=== PATIENT | female | born 1930 | race Caucasian/White ===

== ENCOUNTER 2018-08-08 15:37 | Inpatient (IN) | payer MEDICARE, MEDICAID ==
[2018-08-08 23:44] VITALS: BMI 22.8
[2018-08-09 06:35] LABS: HEMOGLOBIN 10.8 g/dL (12.0-16.0); MEAN CELL VOLUME 96.9 fl (81.0-99.0); MEAN CORPUSCULAR HEMOGLOBIN 32.6 pg (27.0-31.0); MEAN CORPUSCULAR HGB CONC 33.6 g/dL (33.0-37.0); RBC 3.31 Mil/uL (3.80-5.20); RED CELL DISTRIBUTION WIDTH 12.4 % (11.5-14.5); WHITE BLOOD COUNT 4.9 K/uL (4.8-10.8)
[2018-08-09 06:43] LABS: BLOOD UREA NITROGEN 13 mg/dl (7-17); CALCIUM 9.1 mg/dL (8.4-10.2); GFR NON-AFRICAN AMERICAN > 60
[2018-08-09] MEDS: Pantoprazole 40 mg EC Tab PO SCH (09:11)
[2018-08-09] MEDS: Multivitamin With Minerals Tab PO SCH (09:11)
[2018-08-09] MEDS: Enoxaparin 40 mg Syringe SC SCH (13:01)
[2018-08-09] MEDS: DORZOLAMIDE OU SCH (16:01)
[2018-08-09] MEDS: TIMOLOL OU SCH (16:01)
[2018-08-09] MEDS ORDERED: Potassium Chloride 20 mEq ER Tab PO ONE (18:05)
--- NOTE | 2018-08-09 18:10 | PCM.CPAPS ---
History of Present Illness - History of Present Illness History of Present Illness: Dr Parks PMR coverage for Dr. Wilcox on Crystal Weiss, born 1930 known to me from past stay at [facility] where I had seen her on 07/27/18 for [facility] following a CVA. Now coming to acute rehab following CVA. Review of Systems - Constitutional Constitutional: absent: Anorexia, Chills - EENT Eyes: Loss of Vision (long standing) Ears: absent: Ear Discharge, Ear Pain Nose/Mouth/Throat: absent: Nasal Congestion, Nasal Discharge - Cardiovascular Cardiovascular: absent: Chest Pain - Respiratory Respiratory: absent: Cough, Dyspnea - Gastrointestinal Gastrointestinal: absent: Abdominal Pain - Musculoskeletal Musculoskeletal: absent: Back Pain - Integumentary Integumentary: absent: Bleeding Lesions - Neurological Neurological: absent: Abnormal Movements, Numbness 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) Hx Cataracts: (right eye cataract surgery-) - RENAL Hx Chronic Kidney Disease: No - ENDOCRINE/METABOLIC Hx Endocrine Disorders: No - HEMATOLOGICAL/ONCOLOGICAL Hx AIDS: No Hx Human Immunodeficiency Virus (HIV): No - INTEGUMENTARY Hx Dermatological Problems: No - MUSCULOSKELETAL/RHEUMATOLOGICAL Hx Falls: Yes (4 months ago per granddaughter) Other/Comment: hx back pain - GASTROINTESTINAL Hx Gastrointestinal Disorders: Yes Hx Bowel Surgery: (colon resection-2011) Other/Comment: HX Colon Cancer - GENITOURINARY/GYNECOLOGICAL Hx Genitourinary Disorders: No - PSYCHIATRIC Hx Psychophysiologic Disorder: No Hx Anxiety: Yes - SURGICAL HISTORY Hx Surgeries: Yes Hx Amputation: Yes (LEFT INDEX FINGER FROM ACCIDENT AT WORK) Hx Cataract Extraction: Yes Hx Eye Surgery: (Yes-cataract surgery right eye) Hx Orthopedic Surgery: Yes (right TKR-2006) - ANESTHESIA Hx Anesthesia: Yes Hx Anesthesia Reactions: No Hx Malignant Hyperthermia: No Meds Allergies/Adverse Reactions: Allergies Allergy/AdvReac Type Severity Reaction Status Date / Time No Known Allergies Allergy Verified 08/09/18 00:02 - Medications Medications: Current Medications Acetaminophen (Tylenol 325mg Tab) 650 mg PO Q6 PRN PRN Reason: Headache Alprazolam (Xanax) 0.25 mg PO DAILY PRN PRN Reason: for anxiety Stop: 08/16/18 09:01 Aspirin (Ecotrin) 81 mg PO DAILY [facility] Last Admin: 08/09/18 09:10 Dose: 81 mg Atorvastatin Calcium (Lipitor) 20 mg PO HS [facility] Enoxaparin Sodium (Lovenox) 40 mg SC DAILY [facility]; Protocol Last Admin: 08/09/18 13:01 Dose: 40 mg Home Med (Patient's Own Medication) 1 unit OU BID [facility] Last Admin: 08/09/18 16:01 Dose: 1 unit Home Med (Patient's Own Medication) 1 unit OU HS [facility] Metoprolol Tartrate (Lopressor) 50 mg PO Q12 [facility] Last Admin: 08/09/18 09:11 Dose: 50 mg Multivitamins/Minerals (Therapeutic-M Tab) 1 tab PO DAILY [facility] Last Admin: 08/09/18 09:11 Dose: 1 tab Pantoprazole Sodium (Protonix Ec Tab) 40 mg PO DAILY [facility] Last Admin: 08/09/18 09:11 Dose: 40 mg Thiamine HCl (Vitamin B1 Tab) 100 mg PO DAILY [facility] Last Admin: 08/09/18 09:11 Dose: 100 mg Physical Exam - Constitutional Appears: Non-toxic - Respiratory Exam Respiratory Exam: NORMAL BREATHING PATTERN - Cardiovascular Exam Cardiovascular Exam: REGULAR RHYTHM - GI/Abdominal Exam GI & Abdominal Exam: Normal Bowel Sounds. absent: Firm - Extremities Exam Extremities exam: Negative for: calf tenderness - Neurological Exam Neurological exam: Alert - Psychiatric Exam Psychiatric exam: Normal Affect, Normal Mood - Skin Skin Exam: Warm Results - Vital Signs Recent Vital Signs: Last Vital Signs Temp 97.9 F 08/09/18 10:00 Pulse 67 08/09/18 10:00 Resp 18 08/09/18 10:00 BP 152/72 H 08/09/18 10:00 Pulse Ox 96 08/09/18 10:00 - Labs Result Diagrams: 08/09/18 05:20 08/09/18 05:20 Labs: Laboratory Results - last 24 hr 08/09/18 08/09/18 05:20 05:20 WBC 4.9 RBC 3.31 L Hgb 10.8 L Hct 32.1 L MCV 96.9 MCH 32.6 H MCHC 33.6 RDW 12.4 Plt Count 200 Sodium 142 Potassium 3.3 L Chloride 107 Carbon Dioxide 28 Anion Gap 10 BUN 13 Creatinine 0.8 Est GFR ( Amer) > 60 Est GFR (Non-Af Amer) > 60 Random Glucose 92 Calcium 9.1 Assessment & Plan - Assessment and Plan (Free Text) Assessment: Crystal Weiss, born 1930 [facility] weakness and CVA with minimal residual. Patient lives with son and had been fairly independent. C/O L>Rknee pain. 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 Medical History: As above HTN Colon CA 2012 HLD PT/OT to continue to help increase functional independence Team conference for d/c planning Pain: controlled, but if necessary can perform injections Vascular: no evidence of DVT GI: No evidence of constipation or diarrhea Patient is an excellent acute rehabilitation candidate and will have focused pain management,speech therapy, PT, OT and recreational therapy to help facilitate a safe and appropriate d/c plan - Functional Status Prior to Admission: ambulating around independently Current Status: Needs CS/CGA with ambulation and ADLs Impairment Code: 01.2
--- NOTE | 2018-08-09 18:18 | PCM.OPOC ---
Physiatry Overall Plan of Care - Overall Plan of Care Estimated Length of Stay in Weeks: 3 Rehab Impairment: Mobility, Gait, Cognition, Speech, Balance, Coordination Etiologic Diagnosis: Cerebrovascular Accident Rehab/Medical Prognosis: Fair - Anticipated Interventions Physical Therapy:: Yes Number of Hours: 1.5 Number of times per week: 6 Number of Week(s) Duration: 3 Occupational Therapy:: Yes Number of Hours: 1.5 Number of times per week: 6 Number of Week(s) Duration: 3 Speech Therapy:: Yes Number of Hours: 1 Number of times per week: 5 Number of Week(s) Duration: 3 Recreational Therapy:: Yes Number of Hours: 3 Number of times per week: 5 Number of Week(s) Duration: 3 - Therapy Goals Bed Mobility: Supervision Ambulation: Supervision Functional Positional Changes:: Supervision - Functional Status Prior to Admission: independent Current Status: CG/CS - Functional Outcomes Functional Outcomes: to be assessed - Discharge Plan Identification of Barriers to Discharge: Cognition Discharge Destination: Home
[2018-08-09] MEDS: TRAVATAN Z OU SCH (21:25)
--- NOTE | 2018-08-10 03:31 | HP ---
HISTORY OF PRESENT ILLNESS: This is an 88-year-old female with history of multiple medical problems, was admitted to subacute rehabilitation after an acute care admission at [facility] for CVA. As per son, who was at the bedside at the time of this evaluation, he mentioned that the patient went to [facility] about 10 days ago because of slurred speech. The patient was evaluated and she was found to have an acute CVA. The patient had previous CVAs, and she had minimal residual motor weakness. REVIEW OF SYSTEMS: Currently, the patient is not offering any complaint except some knee pain bilaterally, otherwise review of system is negative. ALLERGIES: NO KNOWN ALLERGY. MEDICATIONS: As per MAR, reviewed and ordered. SOCIAL HISTORY: No history of smoking, EtOH or substance abuse. FAMILY HISTORY: Noncontributory. PHYSICAL EXAMINATION: GENERAL: The patient is in bed, not in any cardiopulmonary distress. VITAL SIGNS: Blood pressure 152/72, temperature 97.9, respiratory rate 18 and pulse 67. HEENT: Pupils equal, reactive to light. Normal-appearing mucosa of the conjunctivae, oropharynx and nasal membrane mucosa. NECK: Supple. No JVD. No carotid bruit. No lymph node. No thyromegaly. CHEST AND LUNGS: Bilateral symmetrical expansion. Good air exchange. No rales, no rhonchi. CARDIOVASCULAR SYSTEM: PMI not localized. S1, S2. No additional sounds. ABDOMEN: Normoactive bowel sounds. No tenderness. No organomegaly. No masses. EXTREMITIES: No cyanosis, no clubbing, no edema. 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 ASSESSMENT: 1. Cerebrovascular accident with slurred speech/aphasia. 2. Hypertension. 3. Hypercholesterolemia. 4. History of colon cancer. PLAN: Physical therapy. Resume the patient's medications and occupational therapy. Will do blood work also. Andrea Lopez MD
[2018-08-10] MEDS: Pantoprazole 40 mg EC Tab PO SCH (08:40)
[2018-08-10] MEDS: DORZOLAMIDE OU SCH ×2 (08:40→17:40)
[2018-08-10] MEDS: TIMOLOL OU SCH ×2 (08:40→17:40)
[2018-08-10] MEDS: Enoxaparin 40 mg Syringe SC SCH (08:41)
[2018-08-10] MEDS: Multivitamin With Minerals Tab PO SCH (08:41)
--- NOTE | 2018-08-10 15:48 | CP.PCM.PN ---
Subjective - Date & Time of Evaluation Date of Evaluation: 08/10/18 Time of Evaluation: 15:47 - Subjective Subjective: Patient seen in therapy denies pain or sob at this time afebrile working well with the therapist continue current care Objective - Vital Signs/Intake and Output Vital Signs (last 24 hours): Temp Pulse Resp BP Pulse Ox 98.1 F 72 18 144/72 100 08/10/18 10:00 08/10/18 10:00 08/10/18 10:00 08/10/18 10:00 08/10/18 10:00 - Medications Medications: Current Medications Acetaminophen (Tylenol 325mg Tab) 650 mg PO Q6 PRN PRN Reason: Headache Last Admin: 08/10/18 06:34 Dose: 650 mg Alprazolam (Xanax) 0.25 mg PO DAILY PRN PRN Reason: for anxiety Stop: 08/16/18 09:01 Aspirin (Ecotrin) 81 mg PO DAILY [facility] Last Admin: 08/10/18 08:41 Dose: 81 mg Atorvastatin Calcium (Lipitor) 20 mg PO HS [facility] Last Admin: 08/09/18 21:16 Dose: 20 mg Enoxaparin Sodium (Lovenox) 40 mg SC DAILY [facility]; Protocol Last Admin: 08/10/18 08:41 Dose: 40 mg Home Med (Patient's Own Medication) 1 unit OU BID [facility] Last Admin: 08/10/18 08:40 Dose: 1 unit Home Med (Patient's Own Medication) 1 unit OU HS [facility] Last Admin: 08/09/18 21:25 Dose: 1 unit Metoprolol Tartrate (Lopressor) 50 mg PO Q12 [facility] Last Admin: 08/10/18 08:40 Dose: 50 mg Multivitamins/Minerals (Therapeutic-M Tab) 1 tab PO DAILY [facility] Last Admin: 08/10/18 08:41 Dose: 1 tab Pantoprazole Sodium (Protonix Ec Tab) 40 mg PO DAILY [facility] Last Admin: 08/10/18 08:40 Dose: 40 mg Thiamine HCl (Vitamin B1 Tab) 100 mg PO DAILY [facility] Last Admin: 08/10/18 08:40 Dose: 100 mg - Labs Labs: 08/09/18 05:20 08/09/18 05:20
--- NOTE | 2018-08-10 18:43 | CP.PCM.CON ---
History of Present Illness - History of Present Illness History of Present Illness: Podiatry Consult Note: Dr. Santiago 88 year old female patient, seen and evaluated in rehab for elongated painful nails. Patient was admitted for CVA. Patient states that her nails cause pain in her shoes and that she is unable to cut them herself. She denies nausea/vomiting/fever. 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) Hx Cataracts: (right eye cataract surgery-) - RENAL Hx Chronic Kidney Disease: No - ENDOCRINE/METABOLIC Hx Endocrine Disorders: No - HEMATOLOGICAL/ONCOLOGICAL Hx AIDS: No Hx Human Immunodeficiency Virus (HIV): No - INTEGUMENTARY Hx Dermatological Problems: No - MUSCULOSKELETAL/RHEUMATOLOGICAL Hx Falls: Yes (4 months ago per granddaughter) Other/Comment: hx back pain - GASTROINTESTINAL Hx Gastrointestinal Disorders: Yes Hx Bowel Surgery: (colon resection-2011) Other/Comment: HX Colon Cancer - GENITOURINARY/GYNECOLOGICAL Hx Genitourinary Disorders: No - PSYCHIATRIC Hx Psychophysiologic Disorder: No Hx Anxiety: Yes - SURGICAL HISTORY Hx Surgeries: Yes Hx Amputation: Yes (LEFT INDEX FINGER FROM ACCIDENT AT WORK) Hx Cataract Extraction: Yes Hx Eye Surgery: (Yes-cataract surgery right eye) Hx Orthopedic Surgery: Yes (right TKR-2006) - ANESTHESIA Hx Anesthesia: Yes Hx Anesthesia Reactions: No Hx Malignant Hyperthermia: No Meds Allergies/Adverse Reactions: Allergies Allergy/AdvReac Type Severity Reaction Status Date / Time No Known Allergies Allergy Verified 08/09/18 00:02 - Medications Medications: Current Medications Acetaminophen (Tylenol 325mg Tab) 650 mg PO Q6 PRN PRN Reason: Headache Last Admin: 08/10/18 06:34 Dose: 650 mg Alprazolam (Xanax) 0.25 mg PO DAILY PRN PRN Reason: for anxiety Stop: 08/16/18 09:01 Aspirin (Ecotrin) 81 mg PO DAILY [facility] Last Admin: 08/10/18 08:41 Dose: 81 mg Atorvastatin Calcium (Lipitor) 20 mg PO HS [facility] Last Admin: 08/09/18 21:16 Dose: 20 mg Enoxaparin Sodium (Lovenox) 40 mg SC DAILY [facility]; Protocol Last Admin: 08/10/18 08:41 Dose: 40 mg Home Med (Patient's Own Medication) 1 unit OU BID [facility] Last Admin: 08/10/18 17:40 Dose: 1 unit Home Med (Patient's Own Medication) 1 unit OU HS [facility] Last Admin: 08/09/18 21:25 Dose: 1 unit Metoprolol Tartrate (Lopressor) 50 mg PO Q12 [facility] Last Admin: 08/10/18 08:40 Dose: 50 mg Multivitamins/Minerals (Therapeutic-M Tab) 1 tab PO DAILY [facility] Last Admin: 08/10/18 08:41 Dose: 1 tab Pantoprazole Sodium (Protonix Ec Tab) 40 mg PO DAILY [facility] Last Admin: 08/10/18 08:40 Dose: 40 mg Thiamine HCl (Vitamin B1 Tab) 100 mg PO DAILY [facility] Last Admin: 08/10/18 08:40 Dose: 100 mg Physical Exam - Constitutional Appears: Non-toxic, No Acute Distress - Head Exam Head Exam: ATRAUMATIC, NORMOCEPHALIC - Extremities Exam Additional comments: Vascular: DP/PT 1/4, CFT < 3 seconds, TG warm to warm, no edema present to b/l lower extremities Ortho: Tenderness with palpation of b/l nails Neuro: Gross sensation intact, unable to assess protective sensation at this time Derm: Elongated, dystrophic nails. No open lesions, no erythema, no clinical signs of infection Results - Vital Signs Recent Vital Signs: Last Vital Signs Temp 98.1 F 08/10/18 10:00 Pulse 72 08/10/18 10:00 Resp 18 08/10/18 10:00 BP 144/72 08/10/18 10:00 Pulse Ox 100 08/10/18 10:00 - Labs Result Diagrams: 08/12/18 06:15 08/14/18 05:45 Assessment & Plan - Assessment and Plan (Free Text) Assessment: 88 year old female patient with elongated, painful dystrophic nails. Plan: Patient seen and evaluated with all questions and concerns addressed Discussed with Dr. Santiago Nails debrided with a large nail nipper x10 without incident Podiatry to sign off at this time, please reconsult as needed Thank you for the consult - Date & Time Date: 08/10/18 Time: 18:43
[2018-08-10] MEDS: TRAVATAN Z OU SCH (21:04)
[2018-08-11 06:19] LABS: BLOOD UREA NITROGEN 11 mg/dl (7-17); CALCIUM 9.3 mg/dL (8.4-10.2); GFR NON-AFRICAN AMERICAN > 60
[2018-08-11] MEDS: Enoxaparin 40 mg Syringe SC SCH (08:46)
[2018-08-11] MEDS: Multivitamin With Minerals Tab PO SCH (08:46)
[2018-08-11] MEDS: DORZOLAMIDE OU SCH ×2 (08:46→17:25)
[2018-08-11] MEDS: TIMOLOL OU SCH ×2 (08:46→17:25)
[2018-08-11] MEDS: Pantoprazole 40 mg EC Tab PO SCH (08:47)
[2018-08-11] MEDS: TRAVATAN Z OU SCH (21:38)
--- NOTE | 2018-08-12 02:36 | PN ---
DATE: 08/10/2018 SUBJECTIVE: The patient was seen on 08/10/2018. She was not in any cardiopulmonary distress. PHYSICAL EXAMINATION: VITAL SIGNS: Blood pressure 144/72, temperature 98.1, respiratory rate 18 and pulse 72. HEENT: Normal-appearing mucosa of the conjunctivae. NECK: Supple. No JVD. No carotid bruit. No lymph node. No thyromegaly. CHEST AND LUNGS: Bilateral symmetrical expansion. Good air exchange. No rales, no rhonchi. CARDIOVASCULAR SYSTEM: PMI not localized. S1, S2. No additional sounds. ABDOMEN: Normoactive bowel sounds. No tenderness. No organomegaly. No masses. EXTREMITIES: No cyanosis, no clubbing, no edema. CENTRAL NERVOUS SYSTEM: The patient is awake but she is oriented to person, disoriented to time and place, and moves all extremities equally. ASSESSMENT: 1. Cerebrovascular accident with aphasia. 2. Hypertension. 3. Hypercholesterolemia. 4. Atherosclerotic cardiovascular disease. PLAN: Continue physical therapy and occupational therapy. Continue current medications and supplement potassium as the patient's potassium was 3.3. Jason MD John
[2018-08-12 07:42] LABS: HEMOGLOBIN 11.1 g/dL (12.0-16.0); MEAN CELL VOLUME 95.3 fl (81.0-99.0); MEAN CORPUSCULAR HEMOGLOBIN 32.6 pg (27.0-31.0); MEAN CORPUSCULAR HGB CONC 34.2 g/dL (33.0-37.0); RBC 3.4 Mil/uL (3.80-5.20); RED CELL DISTRIBUTION WIDTH 12.3 % (11.5-14.5); WHITE BLOOD COUNT 4.4 K/uL (4.8-10.8)
[2018-08-12 08:21] LABS: BLOOD UREA NITROGEN 10 mg/dl (7-17); GFR NON-AFRICAN AMERICAN > 60
[2018-08-12] MEDS: Atropine-Diphenoxylate 0.025-2.5 mg Tab PO SCH ×2 (08:56→16:46)
[2018-08-12] MEDS: Multivitamin With Minerals Tab PO SCH (08:57)
[2018-08-12] MEDS: Pantoprazole 40 mg EC Tab PO SCH (08:57)
[2018-08-12] MEDS: Enoxaparin 40 mg Syringe SC SCH (08:57)
[2018-08-12] MEDS: TIMOLOL OU SCH ×2 (08:57→16:47)
[2018-08-12] MEDS: DORZOLAMIDE OU SCH ×2 (08:57→16:47)
[2018-08-12] MEDS: TRAVATAN Z OU SCH (21:01)
[2018-08-13] MEDS: Atropine-Diphenoxylate 0.025-2.5 mg Tab PO SCH (08:50)
[2018-08-13] MEDS: Enoxaparin 40 mg Syringe SC SCH (08:50)
[2018-08-13] MEDS: Pantoprazole 40 mg EC Tab PO SCH (08:51)
[2018-08-13] MEDS: DORZOLAMIDE OU SCH ×2 (08:51→17:02)
[2018-08-13] MEDS: TIMOLOL OU SCH ×2 (08:51→17:02)
[2018-08-13] MEDS: Multivitamin With Minerals Tab PO SCH (08:53)
[2018-08-13] MEDS ORDERED: Magnesium Oxide 400 mg Tab UD PO SCH (17:00)
[2018-08-13] MEDS: Potassium Chloride 20 mEq ER Tab PO SCH (17:01)
[2018-08-13] MEDS: Cholestyramine 4 gm/Pkt UD PO SCH (17:01)
--- NOTE | 2018-08-13 20:28 | PN ---
DATE: 08/13/2018 SUBJECTIVE: The patient is seen today. She is not in any cardiopulmonary distress. Potassium is low. PHYSICAL EXAMINATION: VITAL SIGNS: Blood pressure 141/71, temperature 98.1, respiratory rate 18 and pulse 68. HEENT: Pupils equal, reactive to light. Normal appearing mucosa of the conjunctivae, oropharynx and nasal membrane mucosa. NECK: Supple. No JVD. No carotid bruit. No lymph node. No thyromegaly. CHEST AND LUNGS: Bilateral symmetrical expansion. Good air exchange. No rales, no rhonchi. CARDIOVASCULAR SYSTEM: PMI not localized. S1, S2. No additional sounds. ABDOMEN: Normoactive bowel sounds. No tenderness. No organomegaly. No masses. EXTREMITIES: No cyanosis, no clubbing, no edema. 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 ASSESSMENT: 1. Cardiovascular accident with aphasia. 2. Chronic diarrhea status post partial colectomy for cancer of colon. 3. Hypokalemia. PLAN: We will supplement potassium. We will check the magnesium level and supplement magnesium as needed. Andrea Lopez MD
[2018-08-13] MEDS: TRAVATAN Z OU SCH (21:07)
[2018-08-14 06:08] LABS: ALB/GLOB RATIO 1.3 (1.0-2.1); ALBUMIN 3.3 g/dL (3.5-5.0); ALT/SGPT 33 U/L (9-52); AST/SGOT 19 U/L (14-36); BLOOD UREA NITROGEN 16 mg/dl (7-17); CALCIUM 8.8 mg/dL (8.4-10.2); GFR NON-AFRICAN AMERICAN > 60
[2018-08-14] MEDS: Enoxaparin 40 mg Syringe SC SCH (08:07)
[2018-08-14] MEDS: Multivitamin With Minerals Tab PO SCH (08:08)
[2018-08-14] MEDS: Potassium Chloride 20 mEq ER Tab PO SCH (08:08)
[2018-08-14] MEDS: DORZOLAMIDE OU SCH ×2 (08:09→16:25)
[2018-08-14] MEDS: Pantoprazole 40 mg EC Tab PO SCH (08:09)
[2018-08-14] MEDS: TIMOLOL OU SCH ×2 (08:09→16:25)
[2018-08-14] MEDS: Cholestyramine 4 gm/Pkt UD PO SCH (08:09)
[2018-08-14] MEDS: Atropine-Diphenoxylate 0.025-2.5 mg Tab PO PRN (09:01)
--- NOTE | 2018-08-14 19:21 | CP.PCM.PN ---
Subjective - Date & Time of Evaluation Date of Evaluation: 08/14/18 Time of Evaluation: 13:00 - Subjective Subjective: patent is alert, problems with vision, no acute complaints Objective - Vital Signs/Intake and Output Vital Signs (last 24 hours): Temp Pulse Resp BP Pulse Ox 97.2 F L 77 20 149/68 99 08/14/18 10:00 08/14/18 10:00 08/14/18 10:00 08/14/18 10:00 08/14/18 10:00 - Medications Medications: Current Medications Acetaminophen (Tylenol 325mg Tab) 650 mg PO Q6 PRN PRN Reason: Headache Last Admin: 08/13/18 23:13 Dose: 650 mg Alprazolam (Xanax) 0.25 mg PO DAILY PRN PRN Reason: for anxiety Stop: 08/16/18 09:01 Aspirin (Ecotrin) 81 mg PO DAILY [facility] Last Admin: 08/14/18 08:10 Dose: 81 mg Atorvastatin Calcium (Lipitor) 20 mg PO HS [facility] Last Admin: 08/13/18 21:07 Dose: 20 mg Cholestyramine Resin (Questran) 4 gm PO DAILY [facility] Last Admin: 08/14/18 08:09 Dose: 4 gm Diphenoxylate HCl/Atropine (Lomotil 0.025-2.5 Mg Tablet) 1 tab PO BID PRN PRN Reason: Diarrhea Last Admin: 08/14/18 09:01 Dose: 1 tab Enoxaparin Sodium (Lovenox) 40 mg SC DAILY [facility]; Protocol Last Admin: 08/14/18 08:07 Dose: 40 mg Home Med (Patient's Own Medication) 1 unit OU BID [facility] Last Admin: 08/14/18 16:25 Dose: 1 unit Home Med (Patient's Own Medication) 1 unit OU HS [facility] Last Admin: 08/13/18 21:07 Dose: 1 unit Metoprolol Tartrate (Lopressor) 50 mg PO Q12 [facility] Last Admin: 08/14/18 08:08 Dose: 50 mg Multivitamins/Minerals (Therapeutic-M Tab) 1 tab PO DAILY [facility] Last Admin: 08/14/18 08:08 Dose: 1 tab Pantoprazole Sodium (Protonix Ec Tab) 40 mg PO DAILY [facility] Last Admin: 08/14/18 08:09 Dose: 40 mg Potassium Chloride (K-Dur 20 Meq Er Tab) 20 meq PO DAILY [facility] Last Admin: 08/14/18 08:08 Dose: 20 meq Thiamine HCl (Vitamin B1 Tab) 100 mg PO DAILY [facility] Last Admin: 08/14/18 08:09 Dose: 100 mg - Labs Labs: 08/12/18 06:15 08/14/18 05:45 - Constitutional Appears: Well - Head Exam Head Exam: ATRAUMATIC, NORMAL INSPECTION, NORMOCEPHALIC - Eye Exam Eye Exam: EOMI, Normal appearance Pupil Exam: NORMAL ACCOMODATION, PERRL - ENT Exam ENT Exam: Mucous Membranes Moist, Normal Exam - Neck Exam Neck Exam: Full ROM, Normal Inspection - Respiratory Exam Respiratory Exam: Clear to Ausculation Bilateral, NORMAL BREATHING PATTERN - Cardiovascular Exam Cardiovascular Exam: REGULAR RHYTHM - GI/Abdominal Exam GI & Abdominal Exam: Soft, Normal Bowel Sounds - Rectal Exam Rectal Exam: NORMAL INSPECTION - Exam External exam: NORMAL EXTERNAL EXAM - Extremities Exam Extremities Exam: Full ROM, Normal Capillary Refill, Normal Inspection - Back Exam Back Exam: NORMAL INSPECTION - Neurological Exam Neurological Exam: Alert, Awake Neuro motor strength exam: Left Upper Extremity: 3, Right Upper Extremity: 3, Left Lower Extremity: 3, Right Lower Extremity: 3 - Psychiatric Exam Psychiatric exam: Normal Affect - Skin Skin Exam: Dry, Normal Color Assessment and Plan (1) CVA (cerebral vascular accident) Assessment & Plan: plan for physical, occupational, rec and speech eval. for team conference Status: Acute
--- NOTE | 2018-08-14 19:27 | CP.PCM.PN ---
Subjective - Date & Time of Evaluation Date of Evaluation: 08/13/18 Time of Evaluation: 18:00 - Subjective Subjective: no acute complaints at present Objective - Vital Signs/Intake and Output Vital Signs (last 24 hours): Temp Pulse Resp BP Pulse Ox 97.2 F L 77 20 149/68 99 08/14/18 10:00 08/14/18 10:00 08/14/18 10:00 08/14/18 10:00 08/14/18 10:00 - Medications Medications: Current Medications Acetaminophen (Tylenol 325mg Tab) 650 mg PO Q6 PRN PRN Reason: Headache Last Admin: 08/13/18 23:13 Dose: 650 mg Alprazolam (Xanax) 0.25 mg PO DAILY PRN PRN Reason: for anxiety Stop: 08/16/18 09:01 Aspirin (Ecotrin) 81 mg PO DAILY [facility] Last Admin: 08/14/18 08:10 Dose: 81 mg Atorvastatin Calcium (Lipitor) 20 mg PO HS [facility] Last Admin: 08/13/18 21:07 Dose: 20 mg Cholestyramine Resin (Questran) 4 gm PO DAILY [facility] Last Admin: 08/14/18 08:09 Dose: 4 gm Diphenoxylate HCl/Atropine (Lomotil 0.025-2.5 Mg Tablet) 1 tab PO BID PRN PRN Reason: Diarrhea Last Admin: 08/14/18 09:01 Dose: 1 tab Enoxaparin Sodium (Lovenox) 40 mg SC DAILY [facility]; Protocol Last Admin: 08/14/18 08:07 Dose: 40 mg Home Med (Patient's Own Medication) 1 unit OU BID [facility] Last Admin: 08/14/18 16:25 Dose: 1 unit Home Med (Patient's Own Medication) 1 unit OU HS [facility] Last Admin: 08/13/18 21:07 Dose: 1 unit Metoprolol Tartrate (Lopressor) 50 mg PO Q12 [facility] Last Admin: 08/14/18 08:08 Dose: 50 mg Multivitamins/Minerals (Therapeutic-M Tab) 1 tab PO DAILY [facility] Last Admin: 08/14/18 08:08 Dose: 1 tab Pantoprazole Sodium (Protonix Ec Tab) 40 mg PO DAILY [facility] Last Admin: 08/14/18 08:09 Dose: 40 mg Potassium Chloride (K-Dur 20 Meq Er Tab) 20 meq PO DAILY [facility] Last Admin: 08/14/18 08:08 Dose: 20 meq Thiamine HCl (Vitamin B1 Tab) 100 mg PO DAILY [facility] Last Admin: 08/14/18 08:09 Dose: 100 mg - Labs Labs: 08/12/18 06:15 08/14/18 05:45 - Constitutional Appears: Well - Head Exam Head Exam: ATRAUMATIC, NORMAL INSPECTION, NORMOCEPHALIC - Eye Exam Eye Exam: Normal appearance - ENT Exam ENT Exam: Mucous Membranes Moist - Neck Exam Neck Exam: Full ROM, Normal Inspection - Respiratory Exam Respiratory Exam: Clear to Ausculation Bilateral, NORMAL BREATHING PATTERN - Cardiovascular Exam Cardiovascular Exam: REGULAR RHYTHM - GI/Abdominal Exam GI & Abdominal Exam: Soft, Normal Bowel Sounds - Rectal Exam Rectal Exam: NORMAL INSPECTION - Exam External exam: NORMAL EXTERNAL EXAM - Extremities Exam Extremities Exam: Full ROM, Normal Capillary Refill - Back Exam Back Exam: NORMAL INSPECTION - Neurological Exam Neurological Exam: Alert Neuro motor strength exam: Left Upper Extremity: 3, Right Upper Extremity: 3, Left Lower Extremity: 3, Right Lower Extremity: 3 - Psychiatric Exam Psychiatric exam: Normal Mood - Skin Skin Exam: Normal Color Assessment and Plan (1) CVA (cerebral vascular accident) Assessment & Plan: plan for range of motion, strengthening , transfers and gait training, adl eval and equipment evaluation Status: Acute
[2018-08-14] MEDS: TRAVATAN Z OU SCH (21:16)
[2018-08-15 06:47] LABS: BLOOD UREA NITROGEN 18 mg/dl (7-17); GFR NON-AFRICAN AMERICAN > 60
[2018-08-15 07:08] LABS: HEMOGLOBIN 11.1 g/dL (12.0-16.0); MEAN CELL VOLUME 98.1 fl (81.0-99.0); MEAN CORPUSCULAR HEMOGLOBIN 32.1 pg (27.0-31.0); MEAN CORPUSCULAR HGB CONC 32.7 g/dL (33.0-37.0); RBC 3.47 Mil/uL (3.80-5.20); RED CELL DISTRIBUTION WIDTH 12.3 % (11.5-14.5); WHITE BLOOD COUNT 3.8 K/uL (4.8-10.8)
[2018-08-15] MEDS: Enoxaparin 40 mg Syringe SC SCH (08:46)
[2018-08-15] MEDS: Cholestyramine 4 gm/Pkt UD PO SCH (08:47)
[2018-08-15] MEDS: Potassium Chloride 20 mEq ER Tab PO SCH (08:47)
[2018-08-15] MEDS: Multivitamin With Minerals Tab PO SCH (08:47)
[2018-08-15] MEDS: Pantoprazole 40 mg EC Tab PO SCH (08:47)
[2018-08-15] MEDS: TIMOLOL OU SCH ×2 (08:49→17:00)
[2018-08-15] MEDS: DORZOLAMIDE OU SCH ×2 (08:49→17:00)
--- NOTE | 2018-08-15 11:29 | CP.PCM.PN ---
Subjective - Date & Time of Evaluation Date of Evaluation: 08/15/18 Time of Evaluation: 09:00 - Subjective Subjective: no acute neck or back pain Objective - Vital Signs/Intake and Output Vital Signs (last 24 hours): Temp Pulse Resp BP Pulse Ox 97.9 F 71 19 146/62 97 08/15/18 07:58 08/15/18 08:47 08/15/18 07:58 08/15/18 08:47 08/15/18 07:58 - Medications Medications: Current Medications Acetaminophen (Tylenol 325mg Tab) 650 mg PO Q6 PRN PRN Reason: Headache Last Admin: 08/15/18 05:39 Dose: 650 mg Alprazolam (Xanax) 0.25 mg PO DAILY PRN PRN Reason: for anxiety Stop: 08/16/18 09:01 Aspirin (Ecotrin) 81 mg PO DAILY [facility] Last Admin: 08/15/18 08:48 Dose: 81 mg Atorvastatin Calcium (Lipitor) 20 mg PO HS [facility] Last Admin: 08/14/18 21:15 Dose: 20 mg Cholestyramine Resin (Questran) 4 gm PO DAILY [facility] Last Admin: 08/15/18 08:47 Dose: 4 gm Diphenoxylate HCl/Atropine (Lomotil 0.025-2.5 Mg Tablet) 1 tab PO BID PRN PRN Reason: Diarrhea Last Admin: 08/14/18 09:01 Dose: 1 tab Enoxaparin Sodium (Lovenox) 40 mg SC DAILY [facility]; Protocol Last Admin: 08/15/18 08:46 Dose: 40 mg Home Med (Patient's Own Medication) 1 unit OU BID [facility] Last Admin: 08/15/18 08:49 Dose: 1 unit Home Med (Patient's Own Medication) 1 unit OU HS [facility] Last Admin: 08/14/18 21:16 Dose: 1 unit Metoprolol Tartrate (Lopressor) 50 mg PO Q12 [facility] Last Admin: 08/15/18 08:47 Dose: 50 mg Multivitamins/Minerals (Therapeutic-M Tab) 1 tab PO DAILY [facility] Last Admin: 08/15/18 08:47 Dose: 1 tab Pantoprazole Sodium (Protonix Ec Tab) 40 mg PO DAILY [facility] Last Admin: 08/15/18 08:47 Dose: 40 mg Potassium Chloride (K-Dur 20 Meq Er Tab) 20 meq PO DAILY [facility] Last Admin: 08/15/18 08:47 Dose: 20 meq Thiamine HCl (Vitamin B1 Tab) 100 mg PO DAILY [facility] Last Admin: 08/15/18 08:47 Dose: 100 mg Tobramycin/Dexamethasone (Tobradex Opht Susp) 1 drop OS Q4 [facility] Stop: 08/22/18 12:01 - Labs Labs: 08/15/18 05:20 08/15/18 05:20 - Constitutional Appears: Well - Head Exam Head Exam: ATRAUMATIC, NORMAL INSPECTION, NORMOCEPHALIC - Eye Exam Eye Exam: EOMI, Normal appearance, PERRL Pupil Exam: NORMAL ACCOMODATION - ENT Exam ENT Exam: Mucous Membranes Moist, Normal Exam - Neck Exam Neck Exam: Full ROM, Normal Inspection - Respiratory Exam Respiratory Exam: Clear to Ausculation Bilateral, NORMAL BREATHING PATTERN - Cardiovascular Exam Cardiovascular Exam: REGULAR RHYTHM - GI/Abdominal Exam GI & Abdominal Exam: Soft, Normal Bowel Sounds - Rectal Exam Rectal Exam: NORMAL INSPECTION - Exam External exam: NORMAL EXTERNAL EXAM - Extremities Exam Extremities Exam: Full ROM, Normal Capillary Refill, Normal Inspection - Back Exam Back Exam: NORMAL INSPECTION - Neurological Exam Neurological Exam: Alert, Awake Neuro motor strength exam: Left Upper Extremity: 3, Right Upper Extremity: 3, Left Lower Extremity: 3, Right Lower Extremity: 3 - Psychiatric Exam Psychiatric exam: Normal Affect, Normal Mood - Skin Skin Exam: Dry, Intact Assessment and Plan (1) CVA (cerebral vascular accident) Assessment & Plan: plan for team conference for today for discharge date, equipment eval, status post, PT, Ot rec and st therapy Status: Acute
--- NOTE | 2018-08-15 12:11 | PCM.PSYTMC ---
Acute Rehab Team Conference - - Vital Signs: Vital Signs (Last 8 Hours): Vital Signs 08/15/18 08/15/18 07:58 08:47 Temperature 97.9 F Pulse Rate 71 71 Respiratory 19 Rate Blood Pressure 146/62 146/62 O2 Sat by Pulse 97 Oximetry Pain: 0 Physical Therapy - Bed Mobility Bed Mobility: Supervision, Verbal Cues - Transfers Wheelchair to Mat: Supervision, Verbal Cues, Contact Guard Sit to Stand: Supervision, Verbal Cues, Contact Guard - Ambulation Level of Assistance: Verbal Cues, Contact Guard Distance (ft.): 175 Assistive Devices: N/A Orthoses: n/a Comment: 175 feet without device. -x 6 trials. -patient ambulates with high guard positioning of RUE and PT observes patient to frequently reach for assistance/support from therapist on this side. -patient has fluctuating base of support and with cues to increase the base and separate her feet she tends to lose her balance. -PT working to improve patient's reciprocal arm swing and patient benefits the most from PT providing cueing to RUE for this pattern and then patient able to carry-over for short period of time during gait. -patient with frequent collisions on the right and impaired ability to negotiate R sided obstacles. -patient with 1 LOB when turning towards the right side exiting bathroom require mod to max A to maintain balance due to inadequate balance reaction attempted. -at times patient uses stepping reactions to maintain LOB but this is inconsistent and requires hands on assistance to maintain upright balance - Stair Negotiation Stairs: Level of Assistance: Verbal Cues, Contact Guard Stairs: Assistive Devices: Left Handrail, Right Handrail Comment: 1 flight of 8 inch steps with L rail on ascent and R rail on descent. -patient self-selects reciprocal pattern on ascent and step to pattern on descent. -requires CG/CS for safety on stair negotiation - Standing Balance Static Stand: Contact Guard Assist Comment: no device - Pain Pain (assessed during therapy session): 0 Comment: denies pain - Insight/Carryover Insight/Carryover: Fair - Patient/Family Education Comment: safety, therapy schedule, therapy goals, mobility, POC, use of call begum, requesting assistance for mobility, use of self-releasing seatbelt, compensatory strategies for vision impairments - Assessment/Plan Assessment: Ms. Weiss continues to require constant cueing for safety to avoid obstacles. Patient continues to demonstrate impaired mobility with decreased vision on the R side as well as impaired ability to adhere to compensatory strategies to reduce fall risk. Patient is able to negotiate steps with assistance. PT recommends continued skilled therapy to continue addressing safety and mobility with all tasks s/p CVA. PT recommends home discharge with 24 hour supervision/assistance for safety. PT recommends home services upon discharge. - Goals Timeframe: 7 days Goals: -perform bed/mat mobility with modified independence including rolling and supine to/from sit. -ambulate 250 feet without device with supervision. - negotiate 1 flight of steps with single rail with supervision. -perform transfers with supervision including sit to/from stand and stand pivot. - caretakers will complete formal education - Provider Physical Therapist:: Olga Huynh License Number:: [id number] Occupational Therapy - Arousal/Attention/Orientation Level of Consciousness: Awake, Alert, Forgetful, Confused Patient Orientation: Person Assessment Comment: + appropriate to herself and to family. + not oriented to place and time - ADL/IADL Self Feeding: Supervision, Verbal Cues, Set-up Help Grooming: Supervision, Verbal Cues, Set-up Help Bathing-Upper Ext: Supervision, Verbal Cues Bathing-Lower Ext: Verbal Cues, Set-up Help, Contact Guard Dressing-Upper Ext: Supervision, Verbal Cues, Set-up Help Dressing-Lower Ext: Supervision, Verbal Cues, Contact Guard Comment: showering completed on TTB - Sitting Balance Static Sitting: Supervision Dynamic Sitting: Requires supervision - Transfers Wheelchair to Bed Transfers: Supervision, Verbal Cues, Contact Guard Toilet Transfers: Supervision, Verbal Cues, Contact Guard Tub Transfers: Contact Guard - Wheelchair Management Level of Assistance: Supervision Distance (ft.): 75 - Upper Extremity Status Right Upper Extremity Comment: impaired FM/GM coordination, impaired propioception as evidenced by finger to nose test. unable to complete 9 hole pe g test 2' decreasd cog. PROM WFLs. AROM shoudler flexion approx 70 degrees Left Upper Extremity Comment: AROM WFLs - Pain Pain (assessed during therapy session): 4 Alleviating Techniques: Medication Comment: intermittent L eye pain - Insight/Carryover Insight/Carryover: Fair - Patient/Family Education Comment: CVA recovery, DME/AE recovery - Assessment/Plan Assessment: Patient is a 88 yo f presenting to acute rehab at [facility] s/p acute CVA/. patient is making improvements with self care tasks requiring overall cs/cga and decreased cueing for orientation as well as making gains when transferring completing functional mobility as pt is able to compensate better for visual loss with positioning items to L side and with headturnng techs . patient still demonstrated impaired communicated 2' global aphasia however pt is more verbal conversing better with staff and family. patient still not orientted to place and temporal context. Recommend caregiver training prior to D/C home. Recommend 24/ Supervision/assist at home 2' to cog and visual defecits - Goals Timeframe: 1 week Comment: recommend 05/12 Supervision/assist 2' cog and visual defecits - Provider Occupational Therapist:: Betty De Jesus License Number: [id number] Speech Therapy - Consult Information Patient on Program: Yes Medical Diagnosis: CVA Treatment Diagnosis: [place] Aphasia - Assessment Expressive Language Impairment: Severe Receptive Language Impairment: Moderate - Plan Assessment: Ms Weiss currently presents with a moderate/severe [place] aphasia after administration of the Western Aphasia Battery. She presents poor awareness regarding her speech errors. Errors characterized with by jargon speech, with occasional fluent common phrases or single words. Plan: Continue Speech/Language Therapy Frequency: 3-5 times per week Duration: 1 week - Provider Therapist: Tash Vail License Number: [id number] Recreational Therapy - Participation Participation: Participates in Individual and/or Group Sessions - Attendance Attendance: 3-5 times per week - Activities Leisure Activities: Cards and Games - Socialization Level of Socialization: Initiates/interacts freely with care givers and peer - Diversional Time Diversional Time: television - Assessment Assessment/Plan: Pt is agreeable to participate in recreation theapy sessions following encouragement. Pt participated in modified argelia card task with min A and extended time. Pt will benefit from participating in recreation therapy sessions to improve command following deficits and speech-language deficits. Problems Currently Limiting Participation: R eye blind, receptive and expressive aphasia, forgetfulness, impaired command following Goals and Time Frame: Pt will recall 50% of task rules with supervision by date of discharge. - Provider Therapist: Sissy Bond Nutrition - Current Diet Current Diet/Supplement/Feedings: 2 gram Na ensure plus 8 ounces 2 per day(700 kcal and 26 grams of protein) - Appetite Percent Meal Consumed: 50-74% - Assessment/Goals/Time Frame Assessments/Goals/Time Frame: Pt at moderate nutritional risk. goal: Pt to consume 75-100% of meals. Follow-up due on 08/16/2018 - Provider Provider: Berta Gray Case Management - Psychosocial Assessment Support Systems: Patient's grand daughter Mone and son Arun are both very supportive and involved in care Psychological Interventions/Needs: Patient is alert with aphasia, needs anticipated Discharge Concerns: Patient demonstrates cognitive deficits and difficulty verbalizing needs. Patient also presents with R visual deficits posing safety risk at home. Patient/Family Meeting: CM met with patient and rehab team via certified Arabic speaking auto porter Intervention/Goal/Outcome: 1. Goal: 24 hour supervision at home. 2. Plan: Home with VNS- refer to [facility], prescription also faxed to [facility] for reassessment for increase in [employer] hours. 3. caregiver training to be arranged with family. 4. DME needs? 5. f/u appts. 6. continued emotional support. 7. continued stay auth, LAD: 08/20- updates to be faxed at that time. 8. family informed to followup with PMD Dr. Coronado to initiate PPP services. - Discharge Plan Discharge Plan: Home with services Home Services: [facility] - Provider Provider: Michelle Lennon License Number: [id number] Rehabilitation Plan - Treatment Plan Treatment Plan: Physical Therapy, Occupational Therapy, Speech, Dietary, Patient/Family Education - Recommendation Recommendation: Physical Therapy, Occupational Therapy, Speech, Dietary, Patient/Family Education (DC 11) - Discharge Plan Discharge to: Home
[2018-08-15] MEDS: Dexamethasone/Tobramycin Ophth Susp OS SCH ×3 (12:28→22:00)
[2018-08-15] MEDS: Atropine-Diphenoxylate 0.025-2.5 mg Tab PO PRN ×2 (16:22→22:03)
--- NOTE | 2018-08-15 19:22 | PN ---
DATE: 08/15/2018 SUBJECTIVE: The patient is seen today, 08/15/2018. She is complaining of pain and redness of the left eye. PHYSICAL EXAMINATION: VITAL SIGNS: Blood pressure is 146/62, temperature 97.9, respiratory rate 19, and pulse 71. HEENT: There is conjunctival injection of the left eye. NECK: Supple. No JVD. No carotid bruit. No lymph node. No thyromegaly. CHEST AND LUNGS: Bilateral symmetrical expansion. Good air exchange. No rales. No rhonchi. CARDIOVASCULAR SYSTEM: PMI not localized. S1 and S2. No additional sounds. ABDOMEN: Normoactive bowel sounds. No tenderness. No organomegaly. No masses. EXTREMITIES: No cyanosis, no clubbing, no edema. INSTALLER SOFT TOP: Alert, awake, oriented x2. No neurological deficit could be appreciated. ASSESSMENT: Cerebrovascular accident with aphagia, left eye conjunctivitis, hypertension, and hypercholesterolemia. PLAN: We will give the patient TobraDex eye drops and continue current medications and physical therapy and occupational therapy. Andrea oLpez MD
[2018-08-15] MEDS: TRAVATAN Z OU SCH (22:03)
[2018-08-16] MEDS: Dexamethasone/Tobramycin Ophth Susp OS SCH ×6 (00:03→21:26)
[2018-08-16] MEDS: TIMOLOL OU SCH ×2 (08:40→16:57)
[2018-08-16] MEDS: DORZOLAMIDE OU SCH ×2 (08:40→16:57)
[2018-08-16] MEDS: Cholestyramine 4 gm/Pkt UD PO SCH (08:41)
[2018-08-16] MEDS: Multivitamin With Minerals Tab PO SCH (08:41)
[2018-08-16] MEDS: Pantoprazole 40 mg EC Tab PO SCH (08:41)
[2018-08-16] MEDS: Enoxaparin 40 mg Syringe SC SCH (08:41)
[2018-08-16] MEDS: Potassium Chloride 20 mEq ER Tab PO SCH (08:42)
--- NOTE | 2018-08-16 20:09 | PN ---
DATE: 08/16/2018 SUBJECTIVE: The patient is seen today, on 08/16/2018. She is not in any cardiopulmonary distress. PHYSICAL EXAMINATION: VITAL SIGNS: Blood pressure 160/70, temperature 97.7, respiratory rate 20, and pulse 61. HEENT: Pupils are equal and reactive to light. Normal-appearing mucosa of the conjunctivae. NECK: Supple. No JVD. No carotid bruit. No lymph node. No thyromegaly. CHEST AND LUNGS: Bilateral symmetrical expansion. Good air exchange. No rales. No rhonchi. CARDIOVASCULAR: PMI not localized. S1 and S2. No additional sounds. ABDOMEN: Normoactive bowel sounds. No tenderness. No organomegaly. No masses. EXTREMITIES: No cyanosis. No clubbing. No edema. BAND SAWMILL OPERATOR: Alert, awake, and oriented x2. No neurological deficit and the patient is aphasic. ASSESSMENT: Cerebrovascular accident, hypertension, hypercholesterolemia. PLAN: We will add amlodipine 5 mg daily as the patient's blood pressure is not controlled. Continue physical therapy and occupational therapy. Andrea Lopez MD
[2018-08-16] MEDS: Atropine-Diphenoxylate 0.025-2.5 mg Tab PO PRN (21:19)
[2018-08-16] MEDS: TRAVATAN Z OU SCH (21:26)
[2018-08-17] MEDS: Multivitamin With Minerals Tab PO SCH (08:08)
[2018-08-17] MEDS: Dexamethasone/Tobramycin Ophth Susp OS SCH ×4 (08:08→21:10)
[2018-08-17] MEDS: Cholestyramine 4 gm/Pkt UD PO SCH (08:08)
[2018-08-17] MEDS: Enoxaparin 40 mg Syringe SC SCH (08:10)
[2018-08-17] MEDS: Potassium Chloride 20 mEq ER Tab PO SCH (08:10)
[2018-08-17] MEDS: Pantoprazole 40 mg EC Tab PO SCH (08:12)
[2018-08-17] MEDS: DORZOLAMIDE OU SCH ×2 (09:00→17:03)
[2018-08-17] MEDS: TIMOLOL OU SCH ×2 (09:00→17:03)
--- NOTE | 2018-08-17 12:43 | CP.PCM.PN ---
Subjective - Date & Time of Evaluation Date of Evaluation: 08/17/18 Time of Evaluation: 10:30 - Subjective Subjective: NO ACUTE COMPLAINTS AT PRESENT GOING TO THE BATHROOM Objective - Vital Signs/Intake and Output Vital Signs (last 24 hours): Temp Pulse Resp BP Pulse Ox 98 F 87 20 153/74 H 98 08/17/18 08:06 08/17/18 08:28 08/17/18 07:21 08/17/18 08:28 08/17/18 08:28 - Medications Medications: Current Medications Acetaminophen (Tylenol 325mg Tab) 650 mg PO Q6 PRN PRN Reason: Headache Last Admin: 08/17/18 08:06 Dose: 650 mg Amlodipine Besylate (Norvasc) 5 mg PO DAILY [facility] Last Admin: 08/17/18 08:10 Dose: 5 mg Aspirin (Ecotrin) 81 mg PO DAILY [facility] Last Admin: 08/17/18 08:10 Dose: 81 mg Atorvastatin Calcium (Lipitor) 20 mg PO HS [facility] Last Admin: 08/16/18 21:17 Dose: 20 mg Cholestyramine Resin (Questran) 4 gm PO DAILY [facility] Last Admin: 08/17/18 08:08 Dose: 4 gm Diphenoxylate HCl/Atropine (Lomotil 0.025-2.5 Mg Tablet) 1 tab PO BID PRN PRN Reason: Diarrhea Last Admin: 08/16/18 21:19 Dose: 1 tab Enoxaparin Sodium (Lovenox) 40 mg SC DAILY [facility]; Protocol Last Admin: 08/17/18 08:10 Dose: 40 mg Home Med (Patient's Own Medication) 1 unit OU BID [facility] Last Admin: 08/16/18 16:57 Dose: 1 unit Home Med (Patient's Own Medication) 1 unit OU HS [facility] Last Admin: 08/16/18 21:26 Dose: 1 unit Metoprolol Tartrate (Lopressor) 50 mg PO Q12 [facility] Last Admin: 08/17/18 08:09 Dose: 50 mg Multivitamins/Minerals (Therapeutic-M Tab) 1 tab PO DAILY [facility] Last Admin: 08/17/18 08:08 Dose: 1 tab Pantoprazole Sodium (Protonix Ec Tab) 40 mg PO DAILY [facility] Last Admin: 08/17/18 08:12 Dose: 40 mg Potassium Chloride (K-Dur 20 Meq Er Tab) 20 meq PO DAILY [facility] Last Admin: 08/17/18 08:10 Dose: 20 meq Thiamine HCl (Vitamin B1 Tab) 100 mg PO DAILY [facility] Last Admin: 08/17/18 08:09 Dose: 100 mg Tobramycin/Dexamethasone (Tobradex Opht Susp) 1 drop OS QID [facility] Stop: 08/21/18 09:01 Last Admin: 08/17/18 08:08 Dose: 1 drop - Labs Labs: 08/15/18 05:20 08/15/18 05:20 - Constitutional Appears: Well - Head Exam Head Exam: ATRAUMATIC, NORMAL INSPECTION, NORMOCEPHALIC - Eye Exam Eye Exam: EOMI, Normal appearance, PERRL Pupil Exam: NORMAL ACCOMODATION - ENT Exam ENT Exam: Mucous Membranes Moist, Normal Exam - Neck Exam Neck Exam: Full ROM, Normal Inspection - Respiratory Exam Respiratory Exam: Clear to Ausculation Bilateral, NORMAL BREATHING PATTERN - Cardiovascular Exam Cardiovascular Exam: REGULAR RHYTHM - GI/Abdominal Exam GI & Abdominal Exam: Soft, Normal Bowel Sounds - Rectal Exam Rectal Exam: NORMAL INSPECTION - Exam External exam: NORMAL EXTERNAL EXAM - Extremities Exam Extremities Exam: Full ROM, Normal Capillary Refill, Normal Inspection - Back Exam Back Exam: NORMAL INSPECTION - Neurological Exam Neuro motor strength exam: Left Upper Extremity: 3, Right Upper Extremity: 3, Left Lower Extremity: 3, Right Lower Extremity: 3 - Psychiatric Exam Psychiatric exam: Normal Affect, Normal Mood - Skin Skin Exam: Dry, Intact Assessment and Plan (1) CVA (cerebral vascular accident) Assessment & Plan: PLAN FOR PHYSICAL, OCCUPATIONAL REC AND SPEECH THERAPY. MONITOR VITALS AND SKIN Status: Acute
[2018-08-17] MEDS: TRAVATAN Z OU SCH (21:05)
[2018-08-18 07:49] LABS: HEMOGLOBIN 11.4 g/dL (12.0-16.0); MEAN CORPUSCULAR HEMOGLOBIN 32.6 pg (27.0-31.0); MEAN CORPUSCULAR HGB CONC 33.6 g/dL (33.0-37.0); RBC 3.5 Mil/uL (3.80-5.20); RED CELL DISTRIBUTION WIDTH 12.1 % (11.5-14.5); WHITE BLOOD COUNT 4.5 K/uL (4.8-10.8)
[2018-08-18 08:02] LABS: BLOOD UREA NITROGEN 15 mg/dl (7-17); CALCIUM 8.9 mg/dL (8.4-10.2); GFR NON-AFRICAN AMERICAN > 60
[2018-08-18] MEDS: Multivitamin With Minerals Tab PO SCH (09:09)
[2018-08-18] MEDS: Cholestyramine 4 gm/Pkt UD PO SCH (09:10)
[2018-08-18] MEDS: Pantoprazole 40 mg EC Tab PO SCH (09:11)
[2018-08-18] MEDS: Potassium Chloride 20 mEq ER Tab PO SCH (09:11)
[2018-08-18] MEDS: Enoxaparin 40 mg Syringe SC SCH (09:11)
[2018-08-18] MEDS: Dexamethasone/Tobramycin Ophth Susp OS SCH ×4 (09:12→21:11)
[2018-08-18] MEDS: DORZOLAMIDE OU SCH ×2 (09:12→17:12)
[2018-08-18] MEDS: TIMOLOL OU SCH ×2 (09:12→17:12)
[2018-08-18] MEDS: TRAVATAN Z OU SCH (21:12)
--- NOTE | 2018-08-18 21:46 | PN ---
DATE: 08/18/2018 DAILY PROGRESS NOTE SUBJECTIVE: The patient is seen today, 08/18/2018. The patient is cooperative to both physical therapy and occupational therapy. PHYSICAL EXAMINATION: VITAL SIGNS: Blood pressure is 130/70, temperature 98, respiratory rate 20, and pulse 68. HEENT: Resolving left eye conjunctivitis. NECK: Supple. No JVD. No carotid bruit. No lymph node. No thyromegaly. CHEST AND LUNGS: Bilateral symmetrical expansion. Good air exchange. No rales. No rhonchi. CARDIOVASCULAR SYSTEM: PMI not localized. S1 and S2. No additional sounds. ABDOMEN: Normoactive bowel sounds. No tenderness. No organomegaly. No masses. EXTREMITIES: No cyanosis. No clubbing. No edema. CENTRAL NERVOUS SYSTEM: The patient is aphasic and moves all extremities equally. ASSESSMENT: 1. Cerebrovascular accident. 2. Hypertension. 3. Hypercholesterolemia. PLAN: Continue speech therapy, occupational therapy, and physical therapy. Continue current antihypertensive medications. [facility] MD John
[2018-08-19] MEDS: Atropine-Diphenoxylate 0.025-2.5 mg Tab PO PRN (09:35)
[2018-08-19] MEDS: Multivitamin With Minerals Tab PO SCH (09:36)
[2018-08-19] MEDS: Pantoprazole 40 mg EC Tab PO SCH (09:37)
[2018-08-19] MEDS: Potassium Chloride 20 mEq ER Tab PO SCH (09:37)
[2018-08-19] MEDS: Enoxaparin 40 mg Syringe SC SCH (09:38)
[2018-08-19] MEDS: DORZOLAMIDE OU SCH ×2 (09:39→16:45)
[2018-08-19] MEDS: TIMOLOL OU SCH ×2 (09:39→16:45)
[2018-08-19] MEDS: Dexamethasone/Tobramycin Ophth Susp OS SCH ×4 (09:40→22:03)
[2018-08-19] MEDS: Cholestyramine 4 gm/Pkt UD PO SCH (09:40)
--- NOTE | 2018-08-19 13:00 | CP.PCM.PN ---
Subjective - Date & Time of Evaluation Date of Evaluation: 08/18/18 Time of Evaluation: 09:30 - Subjective Subjective: no acute complaints Objective - Vital Signs/Intake and Output Vital Signs (last 24 hours): Temp Pulse Resp BP Pulse Ox 97.5 F L 72 18 154/73 H 99 08/19/18 10:00 08/19/18 10:00 08/19/18 10:00 08/19/18 10:00 08/19/18 10:00 - Medications Medications: Current Medications Acetaminophen (Tylenol 325mg Tab) 650 mg PO Q6 PRN PRN Reason: Headache Last Admin: 08/17/18 08:06 Dose: 650 mg Amlodipine Besylate (Norvasc) 5 mg PO DAILY [facility] Last Admin: 08/19/18 09:37 Dose: 5 mg Aspirin (Ecotrin) 81 mg PO DAILY [facility] Last Admin: 08/19/18 09:36 Dose: 81 mg Atorvastatin Calcium (Lipitor) 20 mg PO HS [facility] Last Admin: 08/18/18 21:11 Dose: 20 mg Cholestyramine Resin (Questran) 4 gm PO DAILY [facility] Last Admin: 08/19/18 09:40 Dose: 4 gm Diphenoxylate HCl/Atropine (Lomotil 0.025-2.5 Mg Tablet) 1 tab PO BID PRN PRN Reason: Diarrhea Last Admin: 08/19/18 09:35 Dose: 1 tab Enoxaparin Sodium (Lovenox) 40 mg SC DAILY [facility]; Protocol Last Admin: 08/19/18 09:38 Dose: 40 mg Home Med (Patient's Own Medication) 1 unit OU BID [facility] Last Admin: 08/19/18 09:39 Dose: 1 unit Home Med (Patient's Own Medication) 1 unit OU HS [facility] Last Admin: 08/18/18 21:12 Dose: 1 unit Metoprolol Tartrate (Lopressor) 50 mg PO Q12 [facility] Last Admin: 08/19/18 09:36 Dose: 50 mg Multivitamins/Minerals (Therapeutic-M Tab) 1 tab PO DAILY [facility] Last Admin: 08/19/18 09:36 Dose: 1 tab Pantoprazole Sodium (Protonix Ec Tab) 40 mg PO DAILY [facility] Last Admin: 08/19/18 09:37 Dose: 40 mg Potassium Chloride (K-Dur 20 Meq Er Tab) 20 meq PO DAILY [facility] Last Admin: 08/19/18 09:37 Dose: 20 meq Thiamine HCl (Vitamin B1 Tab) 100 mg PO DAILY [facility] Last Admin: 08/19/18 09:37 Dose: 100 mg Tobramycin/Dexamethasone (Tobradex Opht Susp) 1 drop OS QID [facility] Stop: 08/21/18 09:01 Last Admin: 08/19/18 09:40 Dose: 1 drop - Labs Labs: 08/18/18 06:00 08/18/18 06:00 - Constitutional Appears: Well - Head Exam Head Exam: ATRAUMATIC, NORMAL INSPECTION, NORMOCEPHALIC - Eye Exam Eye Exam: EOMI, Normal appearance Pupil Exam: NORMAL ACCOMODATION, PERRL - ENT Exam ENT Exam: Mucous Membranes Moist, Normal Exam - Neck Exam Neck Exam: Full ROM, Normal Inspection - Respiratory Exam Respiratory Exam: Clear to Ausculation Bilateral, NORMAL BREATHING PATTERN - Cardiovascular Exam Cardiovascular Exam: REGULAR RHYTHM - GI/Abdominal Exam GI & Abdominal Exam: Soft, Normal Bowel Sounds - Rectal Exam Rectal Exam: NORMAL INSPECTION - Exam External exam: NORMAL EXTERNAL EXAM - Extremities Exam Extremities Exam: Full ROM, Normal Inspection - Back Exam Back Exam: NORMAL INSPECTION - Neurological Exam Neurological Exam: Alert Neuro motor strength exam: Left Upper Extremity: 3, Right Upper Extremity: 3, Left Lower Extremity: 3, Right Lower Extremity: 3 - Psychiatric Exam Psychiatric exam: Normal Affect - Skin Skin Exam: Normal Color Assessment and Plan (1) CVA (cerebral vascular accident) Assessment & Plan: plan for therapies to continue, Urine to rule out UTI ( foul smelling0 Status: Acute
[2018-08-19] MEDS: TRAVATAN Z OU SCH (21:53)
[2018-08-20] MEDS: Dexamethasone/Tobramycin Ophth Susp OS SCH ×2 (08:28→13:39)
[2018-08-20] MEDS: Pantoprazole 40 mg EC Tab PO SCH (08:28)
[2018-08-20] MEDS: Potassium Chloride 20 mEq ER Tab PO SCH (08:29)
[2018-08-20] MEDS: Multivitamin With Minerals Tab PO SCH (08:29)
[2018-08-20] MEDS: Enoxaparin 40 mg Syringe SC SCH (08:30)
[2018-08-20] MEDS: Cholestyramine 4 gm/Pkt UD PO SCH (08:30)
[2018-08-20] MEDS: TIMOLOL OU SCH ×2 (08:39→16:58)
[2018-08-20] MEDS: DORZOLAMIDE OU SCH ×2 (08:39→16:58)
--- NOTE | 2018-08-20 21:00 | PN ---
DATE: 08/20/2018 SUBJECTIVE: The patient is seen today, 08/20/2018. She is still having aphasia. PHYSICAL EXAMINATION: VITAL SIGNS: Blood pressure is 151/60, temperature 97.9, respiratory rate 18, and pulse 69. HEENT: Pupils equal, reactive to light. Normal-appearing mucosa of the conjunctivae, oropharynx, and nasal membrane mucosa. NECK: Supple. No JVD, no carotid bruit. No lymph node. No thyromegaly. CHEST AND LUNGS: Bilateral symmetrical expansion. Good air exchange. No rales, no rhonchi. CARDIOVASCULAR SYSTEM: PMI not localized. S1, S2. No additional sounds. ABDOMEN: Normoactive bowel sounds. No tenderness, no organomegaly. No masses. EXTREMITIES: No cyanosis, no clubbing, no edema. CENTRAL NERVOUS SYSTEM: Alert, awake, oriented x1, and the patient moves all extremities equally. The patient has aphasia. ASSESSMENT: Cerebrovascular accident, hypertension, hypercholesterolemia, resolved conjunctivitis. PLAN: Continue physical therapy, occupational therapy, speech therapy, and current medications. Andrea Lopez MD
[2018-08-20] MEDS: TRAVATAN Z OU SCH (21:11)
[2018-08-21 05:45] LABS: BASO % 0.3 % (0.0-2.0); EOS # 0.1 K/uL (0.0-0.7); EOS % 1.6 % (0.0-4.0); HEMOGLOBIN 10.9 g/dL (12.0-16.0); LYMPH # 2.1 K/uL (1.0-4.3); MEAN CELL VOLUME 95.6 fl (81.0-99.0); MEAN CORPUSCULAR HEMOGLOBIN 32.1 pg (27.0-31.0); MEAN CORPUSCULAR HGB CONC 33.5 g/dL (33.0-37.0); MEAN PLATELET VOLUME 10.6 fl (7.2-11.7); MONO # 0.6 K/uL (0.0-0.8); MONO % 11.3 % (0.0-10.0); NEUT # 2.7 K/uL (1.8-7.0); NEUT % 48.8 % (50.0-75.0); NRBC % 0.1 % (0.0-0.0); RBC 3.41 Mil/uL (3.80-5.20); RED CELL DISTRIBUTION WIDTH 12.3 % (11.5-14.5); WHITE BLOOD COUNT 5.6 K/uL (4.8-10.8)
[2018-08-21 05:52] LABS: BLOOD UREA NITROGEN 17 mg/dl (7-17); CALCIUM 8.9 mg/dL (8.4-10.2); GFR NON-AFRICAN AMERICAN > 60
[2018-08-21] MEDS: Potassium Chloride 20 mEq ER Tab PO SCH (09:27)
[2018-08-21] MEDS: Enoxaparin 40 mg Syringe SC SCH (09:28)
[2018-08-21] MEDS: Multivitamin With Minerals Tab PO SCH (09:29)
[2018-08-21] MEDS: Pantoprazole 40 mg EC Tab PO SCH (09:29)
[2018-08-21] MEDS: Cholestyramine 4 gm/Pkt UD PO SCH (09:29)
[2018-08-21] MEDS: TIMOLOL OU SCH ×2 (09:44→17:26)
[2018-08-21] MEDS: DORZOLAMIDE OU SCH ×2 (09:44→17:26)
[2018-08-21] MEDS: Atropine-Diphenoxylate 0.025-2.5 mg Tab PO PRN (13:33)
--- NOTE | 2018-08-21 20:56 | PN ---
DATE: 08/21/2018 SUBJECTIVE: The patient is seen today 08/21/2018. She is not in any cardiopulmonary distress. PHYSICAL EXAMINATION: VITAL SIGNS: Blood pressure 123/67, temperature 96.3, respiratory rate 18, and pulse 80. HEENT: Pupils equal, reactive to light. Normal-appearing mucosa of the conjunctivae, oropharynx, and nasal membrane mucosa. NECK: Supple. No JVD. No carotid bruit. No lymph node. No thyromegaly. CHEST AND LUNGS: Bilateral symmetrical expansion. Good air exchange. No rales, no rhonchi. CARDIOVASCULAR SYSTEM: PMI not localized. S1, S2. No additional sounds. ABDOMEN: Normoactive bowel sounds. No tenderness. No organomegaly. No masses. EXTREMITIES: No cyanosis, no clubbing, no edema. CENTRAL NERVOUS SYSTEM: Alert, awake, oriented x2. No neurological deficits could be appreciated. ASSESSMENT: 1. Cerebrovascular accident with aphasia. 2. Hypertension. 3. Hypercholesterolemia. PLAN: Continue speech, occupational, and physical therapy. Continue current antihypertensive medications and medications for cholesterol. Continue potassium supplement due to the hypokalemia. Jason MD John
[2018-08-21] MEDS: TRAVATAN Z OU SCH (21:10)
[2018-08-22] MEDS: Enoxaparin 40 mg Syringe SC SCH (08:18)
[2018-08-22] MEDS: TIMOLOL OU SCH ×2 (08:18→16:51)
[2018-08-22] MEDS: DORZOLAMIDE OU SCH ×2 (08:18→16:51)
[2018-08-22] MEDS: Pantoprazole 40 mg EC Tab PO SCH (08:19)
[2018-08-22] MEDS: Cholestyramine 4 gm/Pkt UD PO SCH (08:20)
[2018-08-22] MEDS: Potassium Chloride 20 mEq ER Tab PO SCH (08:20)
[2018-08-22] MEDS: Multivitamin With Minerals Tab PO SCH (08:20)
--- NOTE | 2018-08-22 11:45 | CP.PCM.PN ---
Subjective - Date & Time of Evaluation Date of Evaluation: 08/21/18 Time of Evaluation: 18:00 - Subjective Subjective: no acute complaints at present Objective - Vital Signs/Intake and Output Vital Signs (last 24 hours): Temp Pulse Resp BP Pulse Ox 97.9 F 74 18 146/61 100 08/22/18 09:00 08/22/18 09:00 08/22/18 09:00 08/22/18 09:00 08/22/18 08:26 - Medications Medications: Current Medications Acetaminophen (Tylenol 325mg Tab) 650 mg PO Q6 PRN PRN Reason: Headache Last Admin: 08/17/18 08:06 Dose: 650 mg Amlodipine Besylate (Norvasc) 5 mg PO DAILY [facility] Last Admin: 08/22/18 08:19 Dose: 5 mg Aspirin (Ecotrin) 81 mg PO DAILY [facility] Last Admin: 08/22/18 08:19 Dose: 81 mg Atorvastatin Calcium (Lipitor) 20 mg PO HS [facility] Last Admin: 08/21/18 21:10 Dose: 20 mg Cholestyramine Resin (Questran) 4 gm PO DAILY [facility] Last Admin: 08/22/18 08:20 Dose: 4 gm Diphenoxylate HCl/Atropine (Lomotil 0.025-2.5 Mg Tablet) 1 tab PO BID PRN PRN Reason: Diarrhea Last Admin: 08/21/18 13:33 Dose: 1 tab Enoxaparin Sodium (Lovenox) 40 mg SC DAILY [facility]; Protocol Last Admin: 08/22/18 08:18 Dose: 40 mg Home Med (Patient's Own Medication) 1 unit OU BID [facility] Last Admin: 08/22/18 08:18 Dose: 1 unit Home Med (Patient's Own Medication) 1 unit OU HS [facility] Last Admin: 08/21/18 21:10 Dose: 1 unit Metoprolol Tartrate (Lopressor) 50 mg PO Q12 [facility] Last Admin: 08/22/18 08:19 Dose: 50 mg Multivitamins/Minerals (Therapeutic-M Tab) 1 tab PO DAILY [facility] Last Admin: 08/22/18 08:20 Dose: 1 tab Pantoprazole Sodium (Protonix Ec Tab) 40 mg PO DAILY [facility] Last Admin: 08/22/18 08:19 Dose: 40 mg Potassium Chloride (K-Dur 20 Meq Er Tab) 20 meq PO DAILY [facility] Last Admin: 08/22/18 08:20 Dose: 20 meq Thiamine HCl (Vitamin B1 Tab) 100 mg PO DAILY [facility] Last Admin: 08/22/18 08:20 Dose: 100 mg - Labs Labs: 08/21/18 05:37 08/21/18 05:37 - Constitutional Appears: Well - Head Exam Head Exam: ATRAUMATIC, NORMAL INSPECTION, NORMOCEPHALIC - Eye Exam Eye Exam: EOMI, Normal appearance, PERRL Pupil Exam: NORMAL ACCOMODATION, PERRL - ENT Exam ENT Exam: Mucous Membranes Moist, Normal Exam - Neck Exam Neck Exam: Full ROM, Normal Inspection - Respiratory Exam Respiratory Exam: Clear to Ausculation Bilateral, NORMAL BREATHING PATTERN - Cardiovascular Exam Cardiovascular Exam: REGULAR RHYTHM - GI/Abdominal Exam GI & Abdominal Exam: Soft, Normal Bowel Sounds - Rectal Exam Rectal Exam: NORMAL INSPECTION - Exam External exam: NORMAL EXTERNAL EXAM - Extremities Exam Extremities Exam: Full ROM, Normal Capillary Refill, Normal Inspection - Back Exam Back Exam: NORMAL INSPECTION - Neurological Exam Neurological Exam: Alert, Awake Neuro motor strength exam: Left Upper Extremity: 3, Right Upper Extremity: 3, Left Lower Extremity: 3, Right Lower Extremity: 3 - Psychiatric Exam Psychiatric exam: Normal Affect, Normal Mood - Skin Skin Exam: Dry, Intact Assessment and Plan (1) CVA (cerebral vascular accident) Assessment & Plan: plan for physical, occupational, rec therapy DC for august 23 Status: Acute
--- NOTE | 2018-08-22 11:47 | CP.PCM.PN ---
Subjective - Date & Time of Evaluation Date of Evaluation: 08/22/18 Time of Evaluation: 10:00 - Subjective Subjective: no neck or back pain, alert freindly Objective - Vital Signs/Intake and Output Vital Signs (last 24 hours): Temp Pulse Resp BP Pulse Ox 97.9 F 74 18 146/61 100 08/22/18 09:00 08/22/18 09:00 08/22/18 09:00 08/22/18 09:00 08/22/18 08:26 - Medications Medications: Current Medications Acetaminophen (Tylenol 325mg Tab) 650 mg PO Q6 PRN PRN Reason: Headache Last Admin: 08/17/18 08:06 Dose: 650 mg Amlodipine Besylate (Norvasc) 5 mg PO DAILY [facility] Last Admin: 08/22/18 08:19 Dose: 5 mg Aspirin (Ecotrin) 81 mg PO DAILY [facility] Last Admin: 08/22/18 08:19 Dose: 81 mg Atorvastatin Calcium (Lipitor) 20 mg PO HS [facility] Last Admin: 08/21/18 21:10 Dose: 20 mg Cholestyramine Resin (Questran) 4 gm PO DAILY [facility] Last Admin: 08/22/18 08:20 Dose: 4 gm Diphenoxylate HCl/Atropine (Lomotil 0.025-2.5 Mg Tablet) 1 tab PO BID PRN PRN Reason: Diarrhea Last Admin: 08/21/18 13:33 Dose: 1 tab Enoxaparin Sodium (Lovenox) 40 mg SC DAILY [facility]; Protocol Last Admin: 08/22/18 08:18 Dose: 40 mg Home Med (Patient's Own Medication) 1 unit OU BID [facility] Last Admin: 08/22/18 08:18 Dose: 1 unit Home Med (Patient's Own Medication) 1 unit OU HS [facility] Last Admin: 08/21/18 21:10 Dose: 1 unit Metoprolol Tartrate (Lopressor) 50 mg PO Q12 [facility] Last Admin: 08/22/18 08:19 Dose: 50 mg Multivitamins/Minerals (Therapeutic-M Tab) 1 tab PO DAILY [facility] Last Admin: 08/22/18 08:20 Dose: 1 tab Pantoprazole Sodium (Protonix Ec Tab) 40 mg PO DAILY [facility] Last Admin: 08/22/18 08:19 Dose: 40 mg Potassium Chloride (K-Dur 20 Meq Er Tab) 20 meq PO DAILY [facility] Last Admin: 08/22/18 08:20 Dose: 20 meq Thiamine HCl (Vitamin B1 Tab) 100 mg PO DAILY [facility] Last Admin: 08/22/18 08:20 Dose: 100 mg - Labs Labs: 08/21/18 05:37 08/21/18 05:37 - Constitutional Appears: Well - Head Exam Head Exam: ATRAUMATIC, NORMAL INSPECTION, NORMOCEPHALIC - Eye Exam Eye Exam: EOMI, Normal appearance, PERRL Pupil Exam: NORMAL ACCOMODATION - ENT Exam ENT Exam: Mucous Membranes Moist, Normal Exam - Neck Exam Neck Exam: Full ROM, Normal Inspection - Respiratory Exam Respiratory Exam: Clear to Ausculation Bilateral, NORMAL BREATHING PATTERN - Cardiovascular Exam Cardiovascular Exam: REGULAR RHYTHM - GI/Abdominal Exam GI & Abdominal Exam: Soft, Normal Bowel Sounds - Rectal Exam Rectal Exam: NORMAL INSPECTION - Exam External exam: NORMAL EXTERNAL EXAM - Extremities Exam Extremities Exam: Full ROM, Normal Capillary Refill, Normal Inspection - Back Exam Back Exam: NORMAL INSPECTION - Neurological Exam Neurological Exam: Alert, Awake Neuro motor strength exam: Left Upper Extremity: 3, Right Upper Extremity: 3, Left Lower Extremity: 3, Right Lower Extremity: 3 - Psychiatric Exam Psychiatric exam: Normal Affect, Normal Mood - Skin Skin Exam: Dry, Intact Assessment and Plan (1) CVA (cerebral vascular accident) Assessment & Plan: plan for discharge planning, home services for team conference for today Status: Acute
--- NOTE | 2018-08-22 12:19 | PCM.PSYTMC ---
Acute Rehab Team Conference - - Vital Signs: Vital Signs (Last 8 Hours): Vital Signs 08/22/18 08/22/18 08/22/18 08:19 08:26 09:00 Temperature 97.9 F 97.9 F Pulse Rate 74 74 74 Respiratory 18 18 Rate Blood Pressure 146/61 146/61 146/61 O2 Sat by Pulse 100 Oximetry Pain: 0 - Precautions: Precautions: Fall Prevention - Medications/Other Issues: Comment: -Chronic/frequent bowel movements (Formed, soft, pasty, liquid) - on Questran and PRN Lomotil. -Right eye blind. -Receptive Aphasia - Consults: Comment: -Dr. Roca. -Dr. Garcia - podiatry - Skin: Incision Site: n/a - Toileting: Toileting: Contact Guard - Bladder Management: Bladder Pattern: Normal Voiding Method: Toilet Bladder Management: Contact Guard - Transfers: Transfers: Contact Guard - ADL's: ADL's: Minimal Assistance - Pain Management: Other Intervention:: n/a - Patient/Family Teaching: Other Intervention:: -Teach patient and family about safety precautions & medications. - Goals/Time Frame: Comment: Keep patient safe and well informed while she is in acute rehab. Assist patient with feeding, grooming, and toileting until discharge or team conference. - Provider: Registered Nurse:: Deanna Conner Physical Therapy - Bed Mobility Bed Mobility: Supervision, Verbal Cues - Transfers Wheelchair to Mat: Supervision, Verbal Cues, Contact Guard Sit to Stand: Supervision, Verbal Cues - Ambulation Distance (ft.): 200 Assistive Devices: N/A Orthoses: n/a Comment: ambulates 200 feet x 2 trial without device w/ CG/CS; requires intermittent CG due to impaired attention and intermittent losses of balance at random and unpredictable intervals. -verbal cues to encourage visual scanning/head turning 2' to impaired vision on R. -continues with rightwards trajectory with mobility in fields ways and reduced RUE reciprocal arm swing though stiffness in RUE during gait is reduced compared to previous therapy sessions - Stair Negotiation Stairs: Level of Assistance: Supervision, Verbal Cues, Contact Guard Stairs: Assistive Devices: Left Handrail, Right Handrail Comment: 1 flight 8 inch steps with L rail on ascent and R rail on descent. - step to pattern leading with RLE on descent and reciprocal pattern on ascent as self-selected by the patient. -CS on ascent and CG/CS on descent - Standing Balance Static Stand: Supervision Comment: no UE device - Pain Pain (assessed during therapy session): 6 Alleviating Techniques: Medication, Position Change, Distraction Comment: intermittent reports of eye pain/discomfort - Insight/Carryover Insight/Carryover: Fair - Patient/Family Education Comment: safety, therapy schedule, therapy goals, mobility, POC, use of call begum, requesting assistance for mobility, use of self-releasing seatbelt, compensatory strategies for vision impairments - Assessment/Plan Assessment: At this time, patient expresses frustration regarding her visual deficits and is demonstrating improving insight into her impairments. Patient's mobility continues to be steady as primarily limited by the patient's visual deficits. Patient is able to ambulate in closed environments with close supervision requiring intermittent CG due to unpredictable and random losses of balance. Patient continues to demonstrate impaired balance reactions requiring hands on assistance for safety. Patient's coordination is also impaired and at times patient requires hand over hand assistance for accurate completion of tasks. PT continues to recommend skilled therapy to maximize safety and independence with all mobility s/p CVA. PT recommends home discharge with home services as well as 24 hour supervision for safety from family/care-takers. recommend care-taker/family training prior to discharge - Goals Timeframe: 7 days Goals: -perform bed/mat mobility with modified independence including rolling and supine to/from sit. -ambulate 200 feet without device with supervision on all surfaces. -negotiate 2 flight of steps with single rail with supervision. -perform transfers with supervision including sit to/from stand and stand pivot. -caretakers will complete formal education to facilitate safe community discharge - Provider Physical Therapist:: Olga Huynh License Number:: [id number] Occupational Therapy - Arousal/Attention/Orientation Level of Consciousness: Awake, Alert, Forgetful, Confused Patient Orientation: Person Assessment Comment: + appropriate to herself and to family. + not oriented to place and time - ADL/IADL Self Feeding: Supervision, Verbal Cues, Set-up Help Grooming: Supervision, Verbal Cues, Set-up Help Bathing-Upper Ext: Supervision, Verbal Cues Bathing-Lower Ext: Verbal Cues, Set-up Help, Contact Guard Dressing-Upper Ext: Supervision, Verbal Cues, Set-up Help Dressing-Lower Ext: Supervision, Verbal Cues, Contact Guard Comment: showering completed on TTB - Sitting Balance Static Sitting: Supervision Dynamic Sitting: Requires supervision - Transfers Wheelchair to Bed Transfers: Supervision, Verbal Cues, Contact Guard Toilet Transfers: Supervision, Verbal Cues, Contact Guard Tub Transfers: Contact Guard - Wheelchair Management Level of Assistance: Supervision Distance (ft.): 75 - Upper Extremity Status Right Upper Extremity Comment: impaired FM/GM coordination, impaired propioception as evidenced by finger to nose test. unable to complete 9 hole peg test 2' decreasd cog. PROM WFLs. AROM shoudler flexion approx 70 degrees Left Upper Extremity Comment: AROM WFLs - Pain Pain (assessed during therapy session): 4 Alleviating Techniques: Medication Comment: intermittent L eye pain - Insight/Carryover Insight/Carryover: Fair - Patient/Family Education Comment: CVA recovery, DME/AE recovery - Assessment/Plan Assessment: Patient is a 88 yo f presenting to acute rehab at [facility] s/p acute CVA/. patient is making improvements with self care tasks requiring overall cs/cga and decreased cueing for orientation as well as making gains when transferring completing functional mobility as pt is able to compensate better for visual loss with positioning items to L side and with headturnng techs . patient still demonstrated impaired communicated 2' global aphasia however pt is more verbal conversing better with staff and family. patient still not orientted to place and temporal context. Recommend caregiver training prior to D/C home. Recommend 24/7 Supervision/assist at home 2' to cog and visual defecits - Goals Timeframe: 1 week Comment: recommend 24/7 Supervision/assist 2' cog and visual defecits - Provider Occupational Therapist:: Betty De Jesus License Number: [id number] Speech Therapy - Consult Information Patient on Program: Yes Medical Diagnosis: CVA Treatment Diagnosis: Aphasia - Assessment Expressive Language Impairment: Severe Receptive Language Impairment: Moderate - Plan Assessment: Ms Weiss currently presents with a moderate/severe receptive aphasia. Her speech accuracy improves at the structured conversation level when she is angry or upset. This week, she has been spontaneously code-switiching between Maltese and Divehi. Pt has been slowly improving receptive language skills by matching pictures to objects, completing basic writing tasks, and placing written words in categories. Plan: Continue Speech/Language Therapy Frequency: 3-5 times per week Duration: 1 week - Provider Therapist: Tash Vail License Number: [id number] Recreational Therapy - Participation Participation: Participates in Individual and/or Group Sessions - Attendance Attendance: 3-5 times per week - Activities Leisure Activities: Cards and Games - Socialization Level of Socialization: Initiates/interacts freely with care givers and peer - Diversional Time Diversional Time: watching television, socializing with family/friends - Assessment Assessment/Plan: Pt is agreeable to participate in recreation therapy sessions following verbal cues for encouragement. Pt has participated in modified argelia card task and go-fish card task requiring min-mod A with both leisure tasks. Pt's barriers in sessions are visual deficits and pt perseverating on previous direction following cues. Pt will continue to benefit from participating in recreation therapy sessions throughout stay on unit. Problems Currently Limiting Participation: R eye blind, receptive and expressive aphasia, forgetfulness, impaired command following Goals and Time Frame: Pt will recall 50% of task rules with supervision by date of discharge. - Provider Therapist: Sissy Bond Nutrition - Current Diet Current Diet/Supplement/Feedings: 2 gm Na. Ensure Plus BID - Appetite Percent Meal Consumed: 75-100% - Assessment/Goals/Time Frame Assessments/Goals/Time Frame: Level 2 (Moderate Risk). Goal: Pt to consume 75- 100% of meals. Due for follow-up on August 23, 2018 - Provider Provider: Berta Gray Case Management - Psychosocial Assessment Support Systems: Patient's grand daughter Mone and son Arun are both very supportive and involved in care Psychological Interventions/Needs: Patient is alert with aphasia, needs anticipated Discharge Concerns: Patient demonstrates cognitive deficits and difficulty verbalizing needs. Patient also presents with R visual deficits posing safety risk at home. Patient/Family Meeting: CM met with patient and rehab team via certified Maltese speaking bag machine helper Sadie Aguilar. Intervention/Goal/Outcome: 1. Goal: 24 hour supervision at home. 2. Plan: Home with outpatient PT/OT/ST at [facility]- appts to be arranged, prescription also faxed to [facility] for reassessment for increase in [employer] hours. 3. DME needs- RW, commode and shower chair with back. 5. f/u appts- Dr. Coronado, Dr. Lamb, Dr. Tapia. 6. continued emotional support. 7. continued stay auth, LAD: 08/24, tentative discharge date: 08/25/2018. - Discharge Plan Discharge Plan: Outpatient rehab - Provider Provider: Michelle Lennon License Number: [id number] Rehabilitation Plan - Treatment Plan Treatment Plan: Physical Therapy, Occupational Therapy, Speech, Dietary - Recommendation Recommendation: Physical Therapy, Occupational Therapy, Speech, Dietary, Patient/Family Education - Discharge Plan Discharge to: Home (DC now for )
[2018-08-22] MEDS: Atropine-Diphenoxylate 0.025-2.5 mg Tab PO PRN (18:37)
[2018-08-22] MEDS: TRAVATAN Z OU SCH (21:12)
[2018-08-23] MEDS: Multivitamin With Minerals Tab PO SCH (09:25)
[2018-08-23] MEDS: Pantoprazole 40 mg EC Tab PO SCH (09:26)
[2018-08-23] MEDS: Cholestyramine 4 gm/Pkt UD PO SCH (09:26)
[2018-08-23] MEDS: Potassium Chloride 20 mEq ER Tab PO SCH (09:26)
[2018-08-23] MEDS: DORZOLAMIDE OU SCH ×2 (09:27→16:46)
[2018-08-23] MEDS: TIMOLOL OU SCH ×2 (09:27→16:46)
[2018-08-23] MEDS: Enoxaparin 40 mg Syringe SC SCH (09:27)
[2018-08-23] MEDS: Atropine-Diphenoxylate 0.025-2.5 mg Tab PO PRN (12:47)
--- NOTE | 2018-08-23 17:46 | RAD ---
Date of service: 08/23/2018 PROCEDURE: Pelvis right hip HISTORY: PAIN COMPARISON: None TECHNIQUE: Standard protocol for this study/examination. FINDINGS: There are no osseous abnormalities to suggest fracture. The pelvic ring is intact. Preserved femoral-acetabular relationship. Negative study for protrusio, subluxation or dislocation. Degenerative changes: Moderate and symmetrical. IMPRESSION: No significant or acute findings to account for/ related to the clinical presentation.
[2018-08-23] MEDS: TRAVATAN Z OU SCH (21:09)
--- NOTE | 2018-08-23 22:52 | PN ---
DATE: 08/23/2018 SUBJECTIVE: The patient is seen today, 08/23/2018. She is complaining of pain in the right hip area. PHYSICAL EXAMINATION: VITAL SIGNS: Blood pressure is 149/75, temperature 97.7, respiratory rate 18, and pulse 79. HEENT: The patient has Arcus senilis and normal-appearing mucosa of the conjunctiva. NECK: Supple. No JVD. No carotid bruit. No lymph node. No thyromegaly. CHEST AND LUNGS: Bilateral symmetrical expansion. Good air exchange. No rales. No rhonchi. CARDIOVASCULAR: PMI not localized. S1, S2. No additional sounds. ABDOMEN: Normoactive bowel sounds. No tenderness. No organomegaly. No masses. EXTREMITIES: No cyanosis. No clubbing. No edema. CENTRAL NERVOUS SYSTEM: Alert, awake, oriented x2. No neurological deficit could be appreciated except for aphasia. ASSESSMENT AND PLAN: 1. Cerebrovascular accident with expressive aphasia. 2. Possible right trochanteric bursitis due to tenderness on the right hip in the presence of range of motion of the right hip. 3. Hypertension. 4. Hypercholesterolemia. PLAN: We will x-ray the right hip, and we will consult with Orthopedic/Physical medicine and rehabilitation for possible trochanteric bursa injection. Andrea Lopez MD
[2018-08-24 07:07] LABS: HEMOGLOBIN 10.7 g/dL (12.0-16.0); MEAN CELL VOLUME 95.5 fl (81.0-99.0); MEAN CORPUSCULAR HEMOGLOBIN 32.5 pg (27.0-31.0); MEAN CORPUSCULAR HGB CONC 34.1 g/dL (33.0-37.0); RBC 3.3 Mil/uL (3.80-5.20); RED CELL DISTRIBUTION WIDTH 12.2 % (11.5-14.5); WHITE BLOOD COUNT 4.9 K/uL (4.8-10.8)
[2018-08-24 07:26] LABS: BLOOD UREA NITROGEN 15 mg/dl (7-17); CALCIUM 8.8 mg/dL (8.4-10.2); GFR NON-AFRICAN AMERICAN > 60
[2018-08-24] MEDS: Potassium Chloride 20 mEq ER Tab PO SCH (08:49)
[2018-08-24] MEDS: Multivitamin With Minerals Tab PO SCH (08:49)
[2018-08-24] MEDS: Enoxaparin 40 mg Syringe SC SCH (08:49)
[2018-08-24] MEDS: Pantoprazole 40 mg EC Tab PO SCH (08:50)
[2018-08-24] MEDS: TIMOLOL OU SCH ×2 (08:50→16:43)
[2018-08-24] MEDS: DORZOLAMIDE OU SCH ×2 (08:50→16:43)
[2018-08-24] MEDS: Cholestyramine 4 gm/Pkt UD PO SCH (08:50)
[2018-08-24] MEDS: Lidocaine 5% Patch TD SCH (08:52)
--- NOTE | 2018-08-24 10:55 | CP.PCM.PN ---
Subjective - Date & Time of Evaluation Date of Evaluation: 08/24/18 Time of Evaluation: 10:52 - Subjective Subjective: ORtho Dr. Cooper 88F complains of right hip pain. Patient is admitted to acute rehab as she recovers from CVA. Progressing well. Ambulated 50 ft yesterday without assistive device but complaining of right sided pain. Denies numbness/tingling. No trauma reported. Denies back pain. Objective - Vital Signs/Intake and Output Vital Signs (last 24 hours): Temp Pulse Resp BP Pulse Ox 97.5 F L 69 18 137/59 L 97 08/24/18 08:07 08/24/18 08:48 08/24/18 08:07 08/24/18 08:48 08/23/18 21:00 - Medications Medications: Current Medications Acetaminophen (Tylenol 325mg Tab) 650 mg PO Q6 PRN PRN Reason: Headache Last Admin: 08/17/18 08:06 Dose: 650 mg Acetaminophen (Tylenol 325mg Tab) 650 mg PO Q6 PRN PRN Reason: Pain (1-10) Amlodipine Besylate (Norvasc) 5 mg PO DAILY [facility] Last Admin: 08/24/18 08:48 Dose: 5 mg Aspirin (Ecotrin) 81 mg PO DAILY [facility] Last Admin: 08/24/18 08:54 Dose: 81 mg Atorvastatin Calcium (Lipitor) 20 mg PO HS [facility] Last Admin: 08/23/18 21:08 Dose: 20 mg Cholestyramine Resin (Questran) 4 gm PO DAILY [facility] Last Admin: 08/24/18 08:50 Dose: 4 gm Diphenoxylate HCl/Atropine (Lomotil 0.025-2.5 Mg Tablet) 1 tab PO BID PRN PRN Reason: Diarrhea Last Admin: 08/23/18 12:47 Dose: 1 tab Enoxaparin Sodium (Lovenox) 40 mg SC DAILY [facility]; Protocol Last Admin: 08/24/18 08:49 Dose: 40 mg Home Med (Patient's Own Medication) 1 unit OU BID [facility] Last Admin: 08/24/18 08:50 Dose: 1 unit Home Med (Patient's Own Medication) 1 unit OU HS [facility] Last Admin: 08/23/18 21:09 Dose: 1 unit Lidocaine (Lidoderm) 1 ea TD DAILY [facility] Last Admin: 08/24/18 08:52 Dose: 1 ea Metoprolol Tartrate (Lopressor) 50 mg PO Q12 [facility] Last Admin: 08/24/18 08:50 Dose: 50 mg Multivitamins/Minerals (Therapeutic-M Tab) 1 tab PO DAILY [facility] Last Admin: 08/24/18 08:49 Dose: 1 tab Pantoprazole Sodium (Protonix Ec Tab) 40 mg PO DAILY [facility] Last Admin: 08/24/18 08:50 Dose: 40 mg Potassium Chloride (K-Dur 20 Meq Er Tab) 20 meq PO DAILY [facility] Last Admin: 08/24/18 08:49 Dose: 20 meq Thiamine HCl (Vitamin B1 Tab) 100 mg PO DAILY [facility] Last Admin: 08/24/18 08:50 Dose: 100 mg - Labs Labs: 08/24/18 06:50 08/24/18 06:50 - Constitutional Appears: Well, No Acute Distress - Head Exam Head Exam: ATRAUMATIC - Neck Exam Neck Exam: Full ROM, Normal Inspection - Respiratory Exam Respiratory Exam: NORMAL BREATHING PATTERN - Extremities Exam Additional comments: TTP to right gluteal area, no midline tenderness/paraspinal tenderness TTP over right greater trochanter posteriorly sensation intact RLE calves soft NT neg homans Right hip: no pain with AROM, int/ext/rotation, grind - Neurological Exam Neurological Exam: Alert, Awake Neuro motor strength exam: Right Lower Extremity: 5 (5/5 hip flex/ext, knee flex/ext, ankle DF/PF) - Psychiatric Exam Psychiatric exam: Normal Affect, Normal Mood - Skin Skin Exam: Normal Color, Warm Assessment and Plan (1) Trochanteric bursitis, right hip Assessment & Plan: Also appears to be some component of sciatica Hip xrays show mild DJD, chondrocalcinosis, no fracture or dislocation appreciated No clinical findings of hip joint pain, painfree hip ROM, full d/w DR. Cooper, recommended for injection Status: Acute Radiology Interpretation - Notes: Notes:: atient Name / ID : CAROLE MCCURDY / [id number] Exam Date : 08/23/2018 16:56:11 ( Approved ) Study Comment : Sex / Age : F / 88Y Creator : Dictator : Leonardo Blanco MD National Sales Associate : Data Review Specialist : Leonardo Blanco MD Approver2 : Report Date : My Comment : Date of service: 08/23/2018 PROCEDURE: Pelvis right hip HISTORY: PAIN COMPARISON: None TECHNIQUE: Standard protocol for this study/examination. FINDINGS: There are no osseous abnormalities to suggest fracture. The pelvic ring is intact. Preserved femoral-acetabular relationship. Negative study for protrusio, subluxation or dislocation. Degenerative changes: Moderate and symmetrical. IMPRESSION: No significant or acute findings to account for/ related to the clinical presentation.
--- NOTE | 2018-08-24 11:52 | CP.PCM.PN ---
Subjective - Date & Time of Evaluation Date of Evaluation: 08/24/18 Time of Evaluation: 10:00 - Subjective Subjective: no acute complaints at present Objective - Vital Signs/Intake and Output Vital Signs (last 24 hours): Temp Pulse Resp BP Pulse Ox 97.7 F 69 18 137/59 L 97 08/24/18 11:29 08/24/18 08:48 08/24/18 08:07 08/24/18 08:48 08/23/18 21:00 - Medications Medications: Current Medications Acetaminophen (Tylenol 325mg Tab) 650 mg PO Q6 PRN PRN Reason: Headache Last Admin: 08/17/18 08:06 Dose: 650 mg Acetaminophen (Tylenol 325mg Tab) 650 mg PO Q6 PRN PRN Reason: Pain (1-10) Last Admin: 08/24/18 11:29 Dose: 650 mg Amlodipine Besylate (Norvasc) 5 mg PO DAILY [facility] Last Admin: 08/24/18 08:48 Dose: 5 mg Aspirin (Ecotrin) 81 mg PO DAILY [facility] Last Admin: 08/24/18 08:54 Dose: 81 mg Atorvastatin Calcium (Lipitor) 20 mg PO HS [facility] Last Admin: 08/23/18 21:08 Dose: 20 mg Cholestyramine Resin (Questran) 4 gm PO DAILY [facility] Last Admin: 08/24/18 08:50 Dose: 4 gm Diphenoxylate HCl/Atropine (Lomotil 0.025-2.5 Mg Tablet) 1 tab PO BID PRN PRN Reason: Diarrhea Last Admin: 08/23/18 12:47 Dose: 1 tab Enoxaparin Sodium (Lovenox) 40 mg SC DAILY [facility]; Protocol Last Admin: 08/24/18 08:49 Dose: 40 mg Home Med (Patient's Own Medication) 1 unit OU BID [facility] Last Admin: 08/24/18 08:50 Dose: 1 unit Home Med (Patient's Own Medication) 1 unit OU HS [facility] Last Admin: 08/23/18 21:09 Dose: 1 unit Lidocaine (Lidoderm) 1 ea TD DAILY [facility] Last Admin: 08/24/18 08:52 Dose: 1 ea Metoprolol Tartrate (Lopressor) 50 mg PO Q12 [facility] Last Admin: 08/24/18 08:50 Dose: 50 mg Multivitamins/Minerals (Therapeutic-M Tab) 1 tab PO DAILY [facility] Last Admin: 08/24/18 08:49 Dose: 1 tab Pantoprazole Sodium (Protonix Ec Tab) 40 mg PO DAILY [facility] Last Admin: 08/24/18 08:50 Dose: 40 mg Potassium Chloride (K-Dur 20 Meq Er Tab) 20 meq PO DAILY [facility] Last Admin: 08/24/18 08:49 Dose: 20 meq Thiamine HCl (Vitamin B1 Tab) 100 mg PO DAILY [facility] Last Admin: 08/24/18 08:50 Dose: 100 mg - Labs Labs: 08/24/18 06:50 08/24/18 06:50 - Constitutional Appears: Well - Head Exam Head Exam: ATRAUMATIC, NORMAL INSPECTION, NORMOCEPHALIC - Eye Exam Eye Exam: EOMI, Normal appearance, PERRL Pupil Exam: NORMAL ACCOMODATION, PERRL - ENT Exam ENT Exam: Mucous Membranes Moist, Normal Exam - Neck Exam Neck Exam: Full ROM - Respiratory Exam Respiratory Exam: Clear to Ausculation Bilateral, NORMAL BREATHING PATTERN - Cardiovascular Exam Cardiovascular Exam: REGULAR RHYTHM - GI/Abdominal Exam GI & Abdominal Exam: Soft, Normal Bowel Sounds - Rectal Exam Rectal Exam: NORMAL INSPECTION - Exam External exam: NORMAL EXTERNAL EXAM - Extremities Exam Extremities Exam: Full ROM, Normal Capillary Refill - Back Exam Back Exam: NORMAL INSPECTION - Neurological Exam Neurological Exam: Alert, Awake Neuro motor strength exam: Left Upper Extremity: 3, Right Upper Extremity: 3, Le ft Lower Extremity: 3, Right Lower Extremity: 3 - Psychiatric Exam Psychiatric exam: Normal Affect, Normal Mood - Skin Skin Exam: Dry, Intact Assessment and Plan (1) CVA (cerebral vascular accident) Assessment & Plan: plan for physical, occupational. rec therapy for therapy program, ultrasound for the hip trochanter, and lidoderm patch Status: Acute
[2018-08-24 20:15] VITALS: RESP 20
[2018-08-24] MEDS: TRAVATAN Z OU SCH (21:16)
[2018-08-25 07:54] VITALS: TEMP 98; O2SAT 98
[2018-08-25] MEDS: Enoxaparin 40 mg Syringe SC SCH (08:22)
[2018-08-25] MEDS: Lidocaine 5% Patch TD SCH (08:26)
[2018-08-25] MEDS: Cholestyramine 4 gm/Pkt UD PO SCH (08:26)
[2018-08-25] MEDS: Multivitamin With Minerals Tab PO SCH (08:27)
[2018-08-25] MEDS: Pantoprazole 40 mg EC Tab PO SCH (08:27)
[2018-08-25 08:28] VITALS: BP 144/89; PULSE 78
[2018-08-25] MEDS: Potassium Chloride 20 mEq ER Tab PO SCH (08:28)
[2018-08-25] MEDS: TIMOLOL OU SCH (09:49)
[2018-08-25] MEDS: DORZOLAMIDE OU SCH (09:49)
--- NOTE | 2018-08-27 03:14 | DS ---
REASON FOR ADMISSION: This is an 88-year-old female with history of multiple medical problems who was admitted for acute rehabilitation after sustaining a cerebrovascular accident. COURSE OF HOSPITALIZATION: The patient was admitted to acute rehabilitation floor at [facility]. The patient was having aphasia and she was started on speech therapy, physical therapy, and occupational therapy. The patient's stay also was complicated with frequent diarrhea for which she was getting Lomotil. The patient is having these frequent bowel motion since she had the surgery for colon cancer. The patient's stay was also complicated with left conjunctivitis for which she was treated with TobraDex. The patient's hypokalemia was being replaced by potassium chloride. The patient was discharged. To continue speech therapy and physical therapy as an outpatient and continue her current medications and follow up with her primary care physician, Dr. Coronado. FINAL DIAGNOSES: Cerebrovascular accident, hypertension, hypercholesterolemia, history of cancer of colon. Andrea Lopez MD
== END 2018-08-25 11:20 | disposition home or self-care (01) | DRG 57 ==
PROVIDERS: ADMIT Internal Medicine; ATTEND Internal Medicine
PROC: F06Z3MZ Aphasia Treatment using Augmentative / Alternative Communication Equipment (ICD-10-PCS; principal; 2018-08-08)
PROC: F06Z6MZ Communicative/Cognitive Integration Skills Treatment using Augmentative / Alternative Communication Equipment (ICD-10-PCS; 2018-08-08)
PROC: F07Z9FZ Gait Training/Functional Ambulation Treatment using Assistive, Adaptive, Supportive or Protective Equipment (ICD-10-PCS; 2018-08-08)
PROC: F07J6FZ Therapeutic Exercise Treatment of Musculoskeletal System - Head and Neck using Assistive, Adaptive, Supportive or Protective Equipment (ICD-10-PCS; 2018-08-09)
PROC: F08Z4FZ Home Management Treatment using Assistive, Adaptive, Supportive or Protective Equipment (ICD-10-PCS; 2018-08-09)
PROC: 0HBRXZZ Excision of Toe Nail, External Approach (ICD-10-PCS; 2018-08-10)
PROC: 0HBRXZZ Excision of Toe Nail, External Approach (ICD-10-PCS; 2018-08-10)
PROC: 0HBRXZZ Excision of Toe Nail, External Approach (ICD-10-PCS; 2018-08-10)
PROC: 0HBRXZZ Excision of Toe Nail, External Approach (ICD-10-PCS; 2018-08-10)
PROC: 0HBRXZZ Excision of Toe Nail, External Approach (ICD-10-PCS; 2018-08-10)
PROC: 0HBRXZZ Excision of Toe Nail, External Approach (ICD-10-PCS; 2018-08-10)
PROC: 0HBRXZZ Excision of Toe Nail, External Approach (ICD-10-PCS; 2018-08-10)
PROC: 0HBRXZZ Excision of Toe Nail, External Approach (ICD-10-PCS; 2018-08-10)
PROC: 0HBRXZZ Excision of Toe Nail, External Approach (ICD-10-PCS; 2018-08-10)
PROC: 0HBRXZZ Excision of Toe Nail, External Approach (ICD-10-PCS; 2018-08-10)
DX: I69.320 Aphasia following cerebral infarction (principal); I69.328 Other speech and language deficits following cerebral infarction; E87.6 Hypokalemia; M70.61 Trochanteric bursitis, right hip; H54.40 Blindness, one eye, unspecified eye; H10.9 Unspecified conjunctivitis; L60.8 Other nail disorders; I25.10 Atherosclerotic heart disease of native coronary artery without angina pectoris; I10 Essential (primary) hypertension; E78.5 Hyperlipidemia, unspecified; E78.00 Pure hypercholesterolemia, unspecified; M19.90 Unspecified osteoarthritis, unspecified site; Z85.038 Personal history of other malignant neoplasm of large intestine; Z87.891 Personal history of nicotine dependence